=== PATIENT | male | born 1945 | race Caucasian/White ===

== ENCOUNTER 2019-06-15 10:51 | Inpatient (IN) ==
[2019-06-15] MEDS ORDERED: ONDANSETRON 4 MG/2 ML VIAL IV STA (11:28)
[2019-06-15] MEDS ORDERED: HYDROmorphone 2 MG/1 ML VIAL IV STA (11:28)
[2019-06-15] MEDS ORDERED: SODIUM CHLORIDE 0.9% 500 ML IV STA (11:28)
[2019-06-15] MEDS ORDERED: PANTOPRAZOLE 40 MG VIAL IV STA (11:28)
[2019-06-15 13:30] LABS: Basophils % 0.2 % (0.0-0.8); Eosinophils % 0.2 % (0.00-10.9); Hemoglobin 11.7 GM/DL (14.0-18.0); Immature Granulocytes % 1.1 %; Lymphocytes # 0.6 10*3/uL (1.4-4.0); Lymphocytes % 6.8 % (21.2-54.2); Mean Corpuscular HGB Conc 31.6 GM/DL (32-36); Mean Corpuscular Volume 91.8 FL (87-102); Mean Platelet Volume 10.7 FL (9.6-12.0); Monocytes % 2.6 % (1.7-12.7); Neutrophils % 89.1 % (38.7-73.9); Platelet Count 245 T/CUMM (130-400); Red Blood Count 4.03 MC/CUMM (3.8-5.5); Red Cell Distribution Width 14.5 % (9.3-17.3)
[2019-06-15 13:35] LABS: Albumin 3.5 G/DL (3.4-5.0); Bilirubin,Total 0.4 MG/DL (0.2-1.0); Calcium 8.2 MG/DL (8.5-10.1); Osmolality,Calculated 300.4 MOS/KG (273-304); Total Protein 6.4 G/DL (6.4-8.3)
[2019-06-15] MEDS ORDERED: methylPREDNISolone SOD SUC 125 MG/2 ML VIAL IV STA (13:57)
[2019-06-15] MEDS ORDERED: SODIUM CHLORIDE 0.9% 1,000 ML IV STA (13:57)
[2019-06-15 13:58] LABS: Band Neutrophils 5 % (0-10); Lymphocytes 9 % (20-55); Platelet Estimate Normal; Segmented Neutrophils 83 % (50-85); Total Cells Counted 100
[2019-06-15] MEDS ORDERED: LACTATED RINGERS 1,000 ML IV SCH (16:00)
[2019-06-15] MEDS ORDERED: ONDANSETRON 4 MG/2 ML VIAL IV PRN (16:00)
[2019-06-15] MEDS ORDERED: ACETAMINOPHEN 325 MG TABLET PO PRN (16:00)
[2019-06-15] MEDS: PANTOPRAZOLE 40 MG TABLET PO SCH (16:42)
[2019-06-15 18:01] LABS: Thyroid Stimulating Hormone 0.665 uIU/ml (0.358-3.74)
[2019-06-15] MEDS ORDERED: INFLUENZA VIRUS VACCINE 0.5 ML SYRINGE IM ONE (18:08)
[2019-06-15] MEDS: DICYCLOMINE 20 MG TABLET PO SCH (20:59)
[2019-06-15] MEDS: DEXTROSE 5% NACL 0.9% 1,000 ML IV SCH (20:59)
[2019-06-15 22:10] LABS: Apearance,Urine Slightly Hazy (Clear); Bilirubin,Urine Negative (Negative); Blood, Urine Negative (Negative); Glucose,Urine (UA) Negative (Negative); Hyaline Casts,Urine 13 /LPF (0-3); Ketones,Urine 5 mg/dL (Negative); Mucus,Urine Occasional /LPF (Occasional); Nitrite,Urine Negative (Negative); Protein,Urine 30 MG/DL; RBC,Urine 2 /HPF (0-4); Squamous Epithelial Cell,Urine Occasional /HPF (0-10); Urine Color Yellow (Yellow); Urine Specific Gravity 1.013 (1.001-1.035); Urine Urobilinogen < 2.0 EU/DL (0.2-1.0); WBC,Urine 1 /HPF (0-6)
[2019-06-16 05:50] LABS: Basophils % 0.1 % (0.0-0.8); Hematocrit 30.9 VOL% (42.0-52.0); Hemoglobin 9.9 GM/DL (14.0-18.0); Immature Granulocytes % 0.9 %; Immature Granulocytes Absolute 0.08 #; Lymphocytes # 0.6 10*3/uL (1.4-4.0); Lymphocytes % 6.5 % (21.2-54.2); Mean Corpuscular Volume 91.2 FL (87-102); Mean Platelet Volume 10.4 FL (9.6-12.0); Monocytes % 3.2 % (1.7-12.7); Neutrophils % 89.3 % (38.7-73.9); Platelet Count 203 T/CUMM (130-400); Red Blood Count 3.39 MC/CUMM (3.8-5.5); Red Cell Distribution Width 14.4 % (9.3-17.3)
[2019-06-16 06:27] LABS: Calcium 8.1 MG/DL (8.5-10.1); Osmolality,Calculated 301.4 MOS/KG (273-304)
[2019-06-16] MEDS: DEXTROSE 5% NACL 0.9% 1,000 ML IV SCH (07:00)
[2019-06-16] MEDS: VANCOMYCIN 50 MG/ML 60 ML/BOTTLE PO SCH ×4 (07:00→19:10)
[2019-06-16] MEDS: PANTOPRAZOLE 40 MG TABLET PO SCH (08:50)
[2019-06-16] MEDS: DICYCLOMINE 20 MG TABLET PO SCH ×2 (08:51→20:51)
[2019-06-16] MEDS: SODIUM BICARB INJ 100 MEQ in DEXTROSE 5% NACL 0.22% 1,000 ML IV SCH ×2 (10:20→20:52)
[2019-06-16] MEDS: LACTOBACILLUS ACIDOPHILUS/BULGARICUS CAPLET PO SCH ×2 (12:53→20:51)
[2019-06-16] MEDS: MULTIVITAMIN (BEROCCA) TABLET PO SCH (12:53)
[2019-06-16] MEDS: CHOLESTYRAMINE 4 GM PACK PO SCH ×2 (12:53→20:52)
[2019-06-16] MEDS: predniSONE 10 MG TABLET PO SCH (12:53)
[2019-06-16] MEDS: CHOLECALCIFEROL 1,000 UNIT TABLET PO SCH (12:53)
[2019-06-16] MEDS ORDERED: ASPIRIN EC 81 MG TABLET PO SCH (21:00)
[2019-06-17] MEDS: VANCOMYCIN 50 MG/ML 60 ML/BOTTLE PO SCH ×3 (01:33→13:55)
[2019-06-17 06:53] LABS: Basophils % 0.2 % (0.0-0.8); Eosinophils % 0.4 % (0.00-10.9); Hemoglobin 9.3 GM/DL (14.0-18.0); Immature Granulocytes % 0.8 %; Immature Granulocytes Absolute 0.08 #; Mean Corpuscular HGB Conc 32.1 GM/DL (32-36); Mean Corpuscular Volume 90.1 FL (87-102); Mean Platelet Volume 10.9 FL (9.6-12.0); Monocytes % 7.2 % (1.7-12.7); Neutrophils % 81.4 % (38.7-73.9); Platelet Count 203 T/CUMM (130-400); Red Blood Count 3.22 MC/CUMM (3.8-5.5); Red Cell Distribution Width 14.4 % (9.3-17.3); White Blood Count 9.7 T/CUMM (4-12)
[2019-06-17 07:23] LABS: Parathyroid Hormone Intact 105.8 PG/ML (18.4-80.1)
[2019-06-17 07:26] LABS: Calcium 8.6 MG/DL (8.5-10.1); Osmolality,Calculated 311.3 MOS/KG (273-304)
[2019-06-17 07:31] LABS: % Iron Saturation 24.3 % (18-50); Ferritin 204.6 ng/ml (26-388)
[2019-06-17 07:37] LABS: Folate 13.6 NG/ML (5.4-24.0); Vitamin B12 1452 PG/ML (211-911)
[2019-06-17 07:50] VITALS: BP 137/68
[2019-06-17 07:58] LABS: Sedimentation Rate-Westergren 28 MM/HR (0-20)
[2019-06-17] MEDS: predniSONE 10 MG TABLET PO SCH (08:08)
[2019-06-17] MEDS: CHOLECALCIFEROL 1,000 UNIT TABLET PO SCH (08:08)
[2019-06-17] MEDS: SODIUM BICARB INJ 100 MEQ in DEXTROSE 5% NACL 0.22% 1,000 ML IV SCH (08:08)
[2019-06-17] MEDS: DICYCLOMINE 20 MG TABLET PO SCH (08:08)
[2019-06-17] MEDS: MULTIVITAMIN (BEROCCA) TABLET PO SCH (08:08)
[2019-06-17] MEDS: PANTOPRAZOLE 40 MG TABLET PO SCH (08:08)
[2019-06-17] MEDS: LACTOBACILLUS ACIDOPHILUS/BULGARICUS CAPLET PO SCH (08:08)
[2019-06-17] MEDS ORDERED: METOPROLOL SUCCINATE XL 25 MG TABLET PO SCH (09:00)
[2019-06-17 09:51] LABS: Hemoglobin A1 (Alkaline) 97.7 % (96.5-98.5); Hemoglobin A2 (Alkaline) 2.3 % (1.5-3.5)
[2019-06-17] MEDS ORDERED: DEXTROSE 5% NACL 0.45% 1,000 ML IV SCH (13:00)
== END 2019-06-17 14:37 | disposition home or self-care (01) | DRG 372 ==
LOC: EDBD → EDUNIT# → N.ED 10:51 → N.EDINP 16:00 → N.5E 17:36
PROVIDERS: ADMIT Hospitalist; ATTEND Hospitalist

== ENCOUNTER 2019-11-12 09:49 | Inpatient (IN) ==
[2019-11-12] MEDS ORDERED: FUROSEMIDE 40 MG/4 ML VIAL IV STA (10:24)
[2019-11-12 10:33] LABS: Basophils # 0.1 10*3/uL (0.0-0.2); Basophils % 0.3 % (0.0-0.8); Eosinophils # 0.1 10*3/uL (0.0-0.87); Eosinophils % 0.8 % (0.00-10.9); Hematocrit 20.1 VOL% (42.0-52.0); Immature Granulocytes % 5.9 %; Immature Granulocytes Absolute 0.89 #; Lymphocytes # 0.8 10*3/uL (1.4-4.0); Mean Corpuscular HGB Conc 31.3 GM/DL (32-36); Mean Corpuscular Volume 96.2 FL (87-102); Mean Platelet Volume 10.1 FL (9.6-12.0); Monocytes % 4.4 % (1.7-12.7); NRBC # 0.05 10*3/uL; Neutrophils % 83.6 % (38.7-73.9); Platelet Count 269 T/CUMM (130-400); Red Blood Count 2.09 MC/CUMM (3.8-5.5); Red Cell Distribution Width 15.7 % (9.3-17.3); White Blood Count 15.1 T/CUMM (4-12)
[2019-11-12 10:37] LABS: Hemoglobin 6.3 GM/DL (14.0-18.0)
[2019-11-12 10:47] LABS: INR 0.9; PT Patient Result 10.1 SECS (9.6-12.2); Partial Thromboplastin Time 21.4 SECS (20.8-36.0)
[2019-11-12] MEDS ORDERED: SODIUM CHLORIDE 0.9% 1,000 ML IV PRN ×2 (10:53→12:12)
[2019-11-12 10:59] LABS: Alanine Aminotransferase 28 U/L (16-61); Alkaline Phosphatase 82 U/L (45-117); Aspartate Amino Transferase 13 U/L (0-37); Bilirubin,Total < 0.39 MG/DL (0.2-1.0); Blood Urea Nitrogen 58 MG/DL (7-18); Calcium 8.4 MG/DL (8.5-10.1); Estimated Glom Filtration Rate 33 ML/MIN; Glucose 116 MG/DL (74-106); Osmolality,Calculated 299.1 MOS/KG (273-304); Total Protein 5.6 G/DL (6.4-8.3)
[2019-11-12 11:03] LABS: Band Neutrophils 4 % (0-10); Eosinophils 1 % (0-10); Lymphocytes 3 % (20-55); Metamyelocytes 1 %; Myelocytes 1 %; Segmented Neutrophils 89 % (50-85); Total Cells Counted 100
[2019-11-12 11:04] LABS: Anisocytosis 2+; Macrocytosis 1+; Microcytosis 1+; Platelet Estimate Normal; Polychromasia Few; Spherocytes Few
[2019-11-12] MEDS ORDERED: SODIUM CHLORIDE 0.9% 500 ML IV STA (12:02)
[2019-11-12] MEDS ORDERED: ACETAMINOPHEN 325 MG TABLET PO PRN (12:08)
[2019-11-12] MEDS ORDERED: ALBUTEROL 2.5 MG/3 ML NEB RESP TX PRN (12:08)
[2019-11-12] MEDS ORDERED: ONDANSETRON 4 MG/2 ML VIAL IV PRN (12:08)
[2019-11-12 12:11] LABS: Apearance,Urine CLEAR (Clear); Bacteria,Urine Occasional /HPF (Few); Bilirubin,Urine Negative (Negative); Blood, Urine Negative (Negative); Glucose,Urine (UA) Negative (Negative); Hyaline Casts,Urine 6 /LPF (0-3); Ketones,Urine Negative (Negative); Nitrite,Urine Negative (Negative); Protein,Urine Negative; RBC,Urine 3 /HPF (0-4); Urine Color Yellow (Yellow); Urine Specific Gravity 1.014 (1.001-1.035); Urine Urobilinogen < 2.0 EU/DL (0.2-1.0); WBC,Urine 2 /HPF (0-6)
[2019-11-12] MEDS ORDERED: ACETAMINOPHEN INJ 1,000 MG in PREMIX 1 EACH IV ONE (12:18)
[2019-11-12 12:46] LABS: % Iron Saturation 36.6 % (18-50); Uric Acid 12.6 MG/DL (3.5-7.2)
[2019-11-12 12:52] LABS: Risk Ratio 4.47; Thyroid Stimulating Hormone 0.879 uIU/ml (0.358-3.74); VLDL CHOLESTEROL 30.8 MG/DL
[2019-11-12 13:56] LABS: Basophils % 0.2 % (0.0-0.8); Eosinophils % 0.2 % (0.00-10.9); Hematocrit 20.9 VOL% (42.0-52.0); Immature Granulocytes % 7.2 %; Immature Granulocytes Absolute 1.08 #; Lymphocytes # 0.6 10*3/uL (1.4-4.0); Lymphocytes % 3.9 % (21.2-54.2); Mean Corpuscular HGB Conc 29.7 GM/DL (32-36); Mean Corpuscular Volume 100.5 FL (87-102); Mean Platelet Volume 9.9 FL (9.6-12.0); Monocytes % 2.5 % (1.7-12.7); NRBC # 0.05 10*3/uL; Platelet Count 256 T/CUMM (130-400); Red Blood Count 2.08 MC/CUMM (3.8-5.5); Red Cell Distribution Width 15.8 % (9.3-17.3)
[2019-11-12 14:01] LABS: Hemoglobin 6.2 GM/DL (14.0-18.0)
[2019-11-12 14:16] LABS: Folate 19.6 NG/ML (5.4-24.0); Vitamin B12 803 PG/ML (211-911)
[2019-11-12 14:49] LABS: Eosinophils 1 % (0-10); Hypochromasia 1+; Lymphocytes 3 % (20-55); Macrocytosis 1+; Segmented Neutrophils 95 % (50-85); Total Cells Counted 100
[2019-11-12 14:50] LABS: Giant Platelets Few; Platelet Estimate Adequate
[2019-11-12 14:51] LABS: Polychromasia Slight
[2019-11-12 15:22] LABS: Sedimentation Rate-Westergren 48 MM/HR (0-20)
[2019-11-12] MEDS: SODIUM CHLORIDE 0.9% 1,000 ML IV SCH (15:35)
[2019-11-12] MEDS: allopurinoL 100 MG TABLET PO SCH (17:51)
[2019-11-12] MEDS: COLCHICINE 0.6 MG CAPSULE PO SCH (20:43)
[2019-11-13 01:12] LABS: Hematocrit 23.4 VOL% (42.0-52.0); Hemoglobin 7.2 GM/DL (14.0-18.0)
[2019-11-13 01:22] LABS: Osmolality,Calculated 298.8 MOS/KG (273-304)
[2019-11-13 05:36] LABS: Basophils # 0.1 10*3/uL (0.0-0.2); Basophils % 0.4 % (0.0-0.8); Eosinophils # 0.1 10*3/uL (0.0-0.87); Eosinophils % 1.1 % (0.00-10.9); Hematocrit 22.9 VOL% (42.0-52.0); Hemoglobin 7.2 GM/DL (14.0-18.0); Immature Granulocytes % 7.2 %; Immature Granulocytes Absolute 0.82 #; Lymphocytes # 1.4 10*3/uL (1.4-4.0); Lymphocytes % 11.9 % (21.2-54.2); Mean Corpuscular HGB Conc 31.4 GM/DL (32-36); Mean Corpuscular Volume 96.2 FL (87-102); Mean Platelet Volume 10.1 FL (9.6-12.0); Monocytes % 6.8 % (1.7-12.7); NRBC # 0.06 10*3/uL; Neutrophils % 72.6 % (38.7-73.9); Platelet Count 212 T/CUMM (130-400); Red Blood Count 2.38 MC/CUMM (3.8-5.5); Red Cell Distribution Width 16.7 % (9.3-17.3); White Blood Count 11.4 T/CUMM (4-12)
[2019-11-13] MEDS ORDERED: SODIUM CHLORIDE 0.9% 1,000 ML IV PRN (06:47)
[2019-11-13 06:55] LABS: Band Neutrophils 5 % (0-10); Eosinophils 2 % (0-10); Lymphocytes 15 % (20-55); Metamyelocytes 1 %; Myelocytes 3 %; Segmented Neutrophils 67 % (50-85); Total Cells Counted 100
[2019-11-13 06:56] LABS: Anisocytosis 1+; Microcytosis 1+; Platelet Estimate Normal
[2019-11-13] MEDS ORDERED: predniSONE 20 MG TABLET PO SCH (09:00)
[2019-11-13] MEDS ORDERED: FUROSEMIDE 40 MG TABLET PO SCH (09:00)
[2019-11-13] MEDS: PANTOPRAZOLE 40 MG TABLET PO SCH (09:14)
[2019-11-13] MEDS: allopurinoL 100 MG TABLET PO SCH (09:14)
[2019-11-13] MEDS: FENOFIBRATE 145 MG TABLET PO SCH (09:14)
[2019-11-13] MEDS: COLCHICINE 0.6 MG CAPSULE PO SCH ×2 (09:14→20:52)
[2019-11-13] MEDS: MULTIVITAMIN (CENTRUM) TABLET PO SCH (09:14)
[2019-11-13] MEDS: OLMESARTAN 20 MG TABLET PO SCH (09:14)
[2019-11-13] MEDS: SODIUM CHLORIDE 0.9% 1,000 ML IV SCH ×2 (09:15→18:24)
[2019-11-13] MEDS: cefTRIAXone 1,000 MG in SYRINGE 1 EACH IV SCH (13:38)
[2019-11-13 17:48] LABS: Hematocrit 29.2 VOL% (42.0-52.0)
[2019-11-13 17:50] LABS: Hemoglobin 9.1 GM/DL (14.0-18.0)
[2019-11-13 23:26] LABS: Hematocrit 26.5 VOL% (42.0-52.0); Hemoglobin 8.3 GM/DL (14.0-18.0)
[2019-11-14] MEDS: SODIUM CHLORIDE 0.9% 1,000 ML IV SCH ×2 (03:51→16:51)
[2019-11-14 06:44] LABS: Basophils # 0.1 10*3/uL (0.0-0.2); Basophils % 0.6 % (0.0-0.8); Eosinophils # 0.2 10*3/uL (0.0-0.87); Eosinophils % 1.8 % (0.00-10.9); Hematocrit 26.6 VOL% (42.0-52.0); Hemoglobin 8.6 GM/DL (14.0-18.0); Immature Granulocytes % 6.7 %; Immature Granulocytes Absolute 0.58 #; Lymphocytes # 1.1 10*3/uL (1.4-4.0); Lymphocytes % 12.1 % (21.2-54.2); Mean Corpuscular HGB Conc 32.3 GM/DL (32-36); Mean Corpuscular Volume 93.7 FL (87-102); Mean Platelet Volume 10.2 FL (9.6-12.0); Monocytes % 7.3 % (1.7-12.7); NRBC # 0.04 10*3/uL; Neutrophils % 71.5 % (38.7-73.9); Platelet Count 180 T/CUMM (130-400); Red Blood Count 2.84 MC/CUMM (3.8-5.5); Red Cell Distribution Width 15.8 % (9.3-17.3); White Blood Count 8.7 T/CUMM (4-12)
[2019-11-14 07:10] LABS: Eosinophils 3 % (0-10); Hypochromasia 1+; Lymphocytes 8 % (20-55); Microcytosis 1+; Platelet Estimate Adequate; Segmented Neutrophils 81 % (50-85); Total Cells Counted 100
[2019-11-14 07:15] LABS: Calcium 8.2 MG/DL (8.5-10.1); Osmolality,Calculated 293.7 MOS/KG (273-304)
[2019-11-14] MEDS ORDERED: LIDOCAINE 2% 5 ML VIAL ONE (09:00)
[2019-11-14] MEDS ORDERED: propofoL 200 MG/20 ML VIAL IV ONE (09:00)
[2019-11-14] MEDS ORDERED: CYANOCOBALAMIN 1000 MCG/1 ML VIAL IM SCH (09:00)
[2019-11-14 09:20] LABS: Hemoglobin A1 (Alkaline) 97.8 % (96.5-98.5); Hemoglobin A2 (Alkaline) 2.2 % (1.5-3.5)
[2019-11-14] MEDS: cefTRIAXone 1,000 MG in SYRINGE 1 EACH IV SCH (13:13)
[2019-11-14] MEDS: OLMESARTAN 20 MG TABLET PO SCH (14:40)
[2019-11-14] MEDS: COLCHICINE 0.6 MG CAPSULE PO SCH ×2 (14:41→20:38)
[2019-11-14] MEDS: MULTIVITAMIN (CENTRUM) TABLET PO SCH (14:41)
[2019-11-14] MEDS: allopurinoL 100 MG TABLET PO SCH (14:41)
[2019-11-14] MEDS: FENOFIBRATE 145 MG TABLET PO SCH (14:41)
[2019-11-14] MEDS: PANTOPRAZOLE 40 MG TABLET PO SCH (14:41)
[2019-11-15 04:46] LABS: Basophils % 0.5 % (0.0-0.8); Eosinophils # 0.2 10*3/uL (0.0-0.87); Eosinophils % 2.4 % (0.00-10.9); Hematocrit 27.4 VOL% (42.0-52.0); Hemoglobin 8.4 GM/DL (14.0-18.0); Immature Granulocytes % 5.6 %; Immature Granulocytes Absolute 0.35 #; Lymphocytes # 0.8 10*3/uL (1.4-4.0); Lymphocytes % 12.9 % (21.2-54.2); Mean Corpuscular HGB Conc 30.7 GM/DL (32-36); Mean Corpuscular Volume 96.8 FL (87-102); Mean Platelet Volume 9.9 FL (9.6-12.0); Monocytes % 8.1 % (1.7-12.7); Neutrophils % 70.5 % (38.7-73.9); Platelet Count 176 T/CUMM (130-400); Red Blood Count 2.83 MC/CUMM (3.8-5.5); Red Cell Distribution Width 16.1 % (9.3-17.3); White Blood Count 6.2 T/CUMM (4-12)
[2019-11-15 05:09] LABS: Band Neutrophils 1 % (0-10); Eosinophils 4 % (0-10); Hypochromasia 1+; Lymphocytes 17 % (20-55); Microcytosis 1+; Platelet Estimate Adequate; Segmented Neutrophils 75 % (50-85); Total Cells Counted 100
[2019-11-15 05:23] LABS: Calcium 8.3 MG/DL (8.5-10.1); Osmolality,Calculated 292.6 MOS/KG (273-304)
[2019-11-15] MEDS: COLCHICINE 0.6 MG CAPSULE PO SCH ×2 (08:41→20:13)
[2019-11-15] MEDS: PANTOPRAZOLE 40 MG TABLET PO SCH (08:41)
[2019-11-15] MEDS: MULTIVITAMIN (CENTRUM) TABLET PO SCH (08:41)
[2019-11-15] MEDS: FENOFIBRATE 145 MG TABLET PO SCH (08:41)
[2019-11-15] MEDS: OLMESARTAN 20 MG TABLET PO SCH (08:41)
[2019-11-15] MEDS: SODIUM CHLORIDE 0.9% 1,000 ML IV SCH ×2 (08:41→20:13)
[2019-11-15] MEDS: allopurinoL 100 MG TABLET PO SCH (08:42)
[2019-11-15] MEDS: cefTRIAXone 1,000 MG in SYRINGE 1 EACH IV SCH (14:45)
[2019-11-16 06:19] LABS: Basophils % 0.7 % (0.0-0.8); Eosinophils # 0.2 10*3/uL (0.0-0.87); Eosinophils % 3.5 % (0.00-10.9); Hematocrit 27.3 VOL% (42.0-52.0); Hemoglobin 8.8 GM/DL (14.0-18.0); Immature Granulocytes % 3.3 %; Immature Granulocytes Absolute 0.19 #; Lymphocytes # 0.8 10*3/uL (1.4-4.0); Lymphocytes % 14.8 % (21.2-54.2); Mean Corpuscular HGB Conc 32.2 GM/DL (32-36); Mean Corpuscular Volume 94.1 FL (87-102); Mean Platelet Volume 9.8 FL (9.6-12.0); Monocytes % 8.1 % (1.7-12.7); Neutrophils % 69.6 % (38.7-73.9); Platelet Count 166 T/CUMM (130-400); Red Cell Distribution Width 16.2 % (9.3-17.3); White Blood Count 5.7 T/CUMM (4-12)
[2019-11-16 06:34] LABS: Alanine Aminotransferase 29 U/L (16-61); Albumin 2.8 G/DL (3.4-5.0); Alkaline Phosphatase 64 U/L (45-117); Aspartate Amino Transferase 21 U/L (0-37); Bilirubin,Total < 0.39 MG/DL (0.2-1.0); Blood Urea Nitrogen 16 MG/DL (7-18); Calcium 8.1 MG/DL (8.5-10.1); Estimated Glom Filtration Rate 74 ML/MIN; Glucose 84 MG/DL (74-106); Osmolality,Calculated 287.7 MOS/KG (273-304); Total Protein 5.5 G/DL (6.4-8.3)
[2019-11-16 06:35] LABS: % Iron Saturation 14.1 % (18-50); Ferritin 356.2 ng/ml (26-388)
[2019-11-16 06:52] LABS: Folate 17.5 NG/ML (5.4-24.0); Vitamin B12 > 2000 PG/ML (211-911)
[2019-11-16] MEDS: OLMESARTAN 20 MG TABLET PO SCH (09:03)
[2019-11-16] MEDS: allopurinoL 100 MG TABLET PO SCH (09:03)
[2019-11-16] MEDS: COLCHICINE 0.6 MG CAPSULE PO SCH (09:03)
[2019-11-16] MEDS: PANTOPRAZOLE 40 MG TABLET PO SCH (09:03)
[2019-11-16] MEDS: FENOFIBRATE 145 MG TABLET PO SCH (09:03)
[2019-11-16] MEDS: MULTIVITAMIN (CENTRUM) TABLET PO SCH (09:03)
[2019-11-16 11:03] VITALS: BP 132/86
== END 2019-11-16 15:30 | disposition home or self-care (01) | DRG 378 ==
LOC: N.ED 09:49 → N.EDINP 12:08 → SUATTDRO 12:08 → N.3E 13:03
PROVIDERS: ADMIT Internal Medicine; ATTEND Internal Medicine

== ENCOUNTER 2020-01-21 13:10 | Inpatient (IN) ==
[~2020-01-21 13:10] MED LIST: LIDOCAINE 2% 5 ML VIAL ONE; propofoL 200 MG/20 ML VIAL IV ONE
[2020-01-21 13:40] LABS: Basophils # 0.1 10*3/uL (0.0-0.2); Basophils % 0.5 % (0.0-0.8); Eosinophils # 0.1 10*3/uL (0.0-0.87); Eosinophils % 0.3 % (0.00-10.9); Hematocrit 30.5 VOL% (42.0-52.0); Hemoglobin 9.4 GM/DL (14.0-18.0); Immature Granulocytes % 9.9 %; Immature Granulocytes Absolute 1.51 #; Lymphocytes # 0.4 10*3/uL (1.4-4.0); Lymphocytes % 2.9 % (21.2-54.2); Mean Corpuscular HGB Conc 30.8 GM/DL (32-36); Mean Corpuscular Volume 98.4 FL (87-102); Mean Platelet Volume 9.9 FL (9.6-12.0); Monocytes % 4.6 % (1.7-12.7); NRBC # 0.13 10*3/uL; Neutrophils % 81.8 % (38.7-73.9); Platelet Count 223 T/CUMM (130-400); Red Cell Distribution Width 17.6 % (9.3-17.3); White Blood Count 15.3 T/CUMM (4-12)
[2020-01-21 14:01] LABS: Alanine Aminotransferase 26 U/L (16-61); Alkaline Phosphatase 63 U/L (45-117); Aspartate Amino Transferase 24 U/L (0-37); Bilirubin,Total < 0.39 MG/DL (0.2-1.0); Blood Urea Nitrogen 33 MG/DL (7-18); Calcium 8.5 MG/DL (8.5-10.1); Estimated Glom Filtration Rate 41 ML/MIN; Glucose 101 MG/DL (74-106); Osmolality,Calculated 285.4 MOS/KG (273-304); Total Protein 6.2 G/DL (6.4-8.3)
[2020-01-21] MEDS ORDERED: SODIUM CHLORIDE 0.9% 1,000 ML IV STA (14:49)
[2020-01-21] MEDS ORDERED: PANTOPRAZOLE 40 MG VIAL IV STA (14:49)
[2020-01-21 15:29] LABS: Band Neutrophils 2 % (0-10); Lymphocytes 4 % (20-55); Macrocytosis Slight; Nucleated Red Blood Cells 3 (0-5); Platelet Estimate Normal; Segmented Neutrophils 89 % (50-85); Total Cells Counted 100
[2020-01-21 15:33] LABS: PT Patient Result 10.3 SECS (9.8-11.9); Partial Thromboplastin Time 25.9 SECS (23.9-33.8)
[2020-01-21] MEDS ORDERED: GLUCAGON 1 MG VIAL IM PRN (16:32)
[2020-01-21] MEDS ORDERED: ONDANSETRON 4 MG/2 ML VIAL IV PRN (16:32)
[2020-01-21] MEDS ORDERED: DEXTROSE 10% 250 ML BAG IV PRN (16:32)
[2020-01-21] MEDS ORDERED: ACETAMINOPHEN 325 MG TABLET PO PRN (16:32)
[2020-01-21] MEDS ORDERED: SODIUM CHLORIDE 0.9% 1,000 ML IV PRN (16:35)
[2020-01-21 17:48] LABS: Ferritin 1481.3 ng/ml (26-388)
[2020-01-21 17:56] LABS: Troponin I < 0.015 NG/ML (0.00-0.045)
[2020-01-21] MEDS ORDERED: SODIUM CHLORIDE 0.9% 1,000 ML IV SCH (18:42)
[2020-01-21 19:10] LABS: Hematocrit 32.5 VOL% (42.0-52.0); Hemoglobin 9.8 GM/DL (14.0-18.0)
[2020-01-21] MEDS: PANTOPRAZOLE 40 MG VIAL IV SCH (21:58)
[2020-01-21] MEDS ORDERED: NON-FORMULARY MEDICATION (Omeprazole 40 MG) PO PRN (22:46)
[2020-01-21] MEDS ORDERED: FUROSEMIDE 40 MG TABLET PO PRN (22:46)
[2020-01-21] MEDS ORDERED: ALBUTEROL 2.5 MG/3 ML NEB RESP TX PRN (22:46)
[2020-01-21] MEDS: traMADol 50 MG TABLET PO SCH (23:21)
[2020-01-22 01:07] LABS: Hematocrit 26.6 VOL% (42.0-52.0); Hemoglobin 8.1 GM/DL (14.0-18.0)
[2020-01-22] MEDS: PANTOPRAZOLE 40 MG VIAL IV SCH ×2 (08:40→22:27)
[2020-01-22] MEDS: FENOFIBRATE 145 MG TABLET PO SCH (08:41)
[2020-01-22] MEDS: allopurinoL 100 MG TABLET PO SCH (08:41)
[2020-01-22] MEDS: COLCHICINE 0.6 MG CAPSULE PO SCH (08:41)
[2020-01-22] MEDS: predniSONE 20 MG TABLET PO SCH (08:41)
[2020-01-22] MEDS: OLMESARTAN 20 MG TABLET PO SCH (08:41)
[2020-01-22 08:42] LABS: Hematocrit 27.5 VOL% (42.0-52.0); Hemoglobin 8.5 GM/DL (14.0-18.0)
[2020-01-22 08:55] LABS: Albumin 2.8 G/DL (3.4-5.0); Bilirubin,Total 0.7 MG/DL (0.2-1.0); Calcium 8.2 MG/DL (8.5-10.1); Total Protein 5.6 G/DL (6.4-8.3)
[2020-01-22] MEDS ORDERED: MULTIVITAMIN (CENTRUM) TABLET PO SCH (09:00)
[2020-01-22 10:29] LABS: % Iron Saturation 32.9 % (18-50)
[2020-01-22] MEDS: SODIUM CHLORIDE 0.9% 1,000 ML IV SCH (15:55)
[2020-01-22 18:26] LABS: Hematocrit 27.2 VOL% (42.0-52.0); Hemoglobin 8.3 GM/DL (14.0-18.0)
[2020-01-22] MEDS: traMADol 50 MG TABLET PO SCH (20:40)
[2020-01-23 06:27] LABS: Basophils % 0.4 % (0.0-0.8); Eosinophils # 0.1 10*3/uL (0.0-0.87); Eosinophils % 1.1 % (0.00-10.9); Hematocrit 25.7 VOL% (42.0-52.0); Immature Granulocytes % 6.9 %; Immature Granulocytes Absolute 0.54 #; Lymphocytes # 0.8 10*3/uL (1.4-4.0); Lymphocytes % 9.9 % (21.2-54.2); Mean Corpuscular HGB Conc 31.1 GM/DL (32-36); Mean Corpuscular Volume 97.3 FL (87-102); Mean Platelet Volume 9.9 FL (9.6-12.0); Monocytes % 7.2 % (1.7-12.7); Neutrophils % 74.5 % (38.7-73.9); Platelet Count 183 T/CUMM (130-400); Red Blood Count 2.64 MC/CUMM (3.8-5.5); Red Cell Distribution Width 17.8 % (9.3-17.3); White Blood Count 7.9 T/CUMM (4-12)
[2020-01-23] MEDS: SODIUM CHLORIDE 0.9% 1,000 ML IV SCH (06:47)
[2020-01-23 06:52] LABS: Calcium 8.2 MG/DL (8.5-10.1); Osmolality,Calculated 279.4 MOS/KG (273-304)
[2020-01-23 07:13] LABS: Anisocytosis 2+; Band Neutrophils 7 % (0-10); Eosinophils 1 % (0-10); Lymphocytes 12 % (20-55); Metamyelocytes 2 %; Myelocytes 3 %; Platelet Estimate Normal; Segmented Neutrophils 70 % (50-85); Total Cells Counted 100
[2020-01-23 07:14] LABS: Basophilic Stippling Slight; Macrocytosis Slight; Polychromasia Slight
[2020-01-23] MEDS: predniSONE 20 MG TABLET PO SCH ×2 (08:00→15:05)
[2020-01-23] MEDS ORDERED: CYANOCOBALAMIN 1000 MCG/1 ML VIAL IM SCH (09:00)
[2020-01-23] MEDS: PANTOPRAZOLE 40 MG VIAL IV SCH ×2 (09:15→21:14)
[2020-01-23] MEDS: OLMESARTAN 20 MG TABLET PO SCH (14:41)
[2020-01-23] MEDS: allopurinoL 100 MG TABLET PO SCH (14:41)
[2020-01-23] MEDS: COLCHICINE 0.6 MG CAPSULE PO SCH (14:41)
[2020-01-23] MEDS: FENOFIBRATE 145 MG TABLET PO SCH (14:41)
[2020-01-23] MEDS: traMADol 50 MG TABLET PO SCH (21:14)
[2020-01-24 06:08] LABS: Basophils % 0.1 % (0.0-0.8); Hematocrit 27.3 VOL% (42.0-52.0); Hemoglobin 8.4 GM/DL (14.0-18.0); Immature Granulocytes % 3.8 %; Immature Granulocytes Absolute 0.29 #; Lymphocytes # 0.6 10*3/uL (1.4-4.0); Lymphocytes % 8.1 % (21.2-54.2); Mean Corpuscular HGB Conc 30.8 GM/DL (32-36); Mean Corpuscular Volume 98.2 FL (87-102); Mean Platelet Volume 9.9 FL (9.6-12.0); Monocytes % 5.4 % (1.7-12.7); Neutrophils % 82.6 % (38.7-73.9); Platelet Count 171 T/CUMM (130-400); Red Blood Count 2.78 MC/CUMM (3.8-5.5); Red Cell Distribution Width 17.2 % (9.3-17.3); White Blood Count 7.6 T/CUMM (4-12)
[2020-01-24] MEDS: OLMESARTAN 20 MG TABLET PO SCH (09:10)
[2020-01-24] MEDS: allopurinoL 100 MG TABLET PO SCH (09:10)
[2020-01-24] MEDS: COLCHICINE 0.6 MG CAPSULE PO SCH (09:10)
[2020-01-24] MEDS: predniSONE 20 MG TABLET PO SCH (09:10)
[2020-01-24] MEDS: PANTOPRAZOLE 40 MG VIAL IV SCH ×2 (09:11→23:02)
[2020-01-24] MEDS: FENOFIBRATE 145 MG TABLET PO SCH (09:11)
[2020-01-24] MEDS ORDERED: SODIUM CHLORIDE 0.9% 1,000 ML IV PRN (12:19)
[2020-01-24] MEDS ORDERED: MAGNESIUM CITRATE 300 ML BOTTLE PO ONE (18:00)
[2020-01-24] MEDS: traMADol 50 MG TABLET PO SCH (22:57)
[2020-01-24] MEDS: cefTRIAXone 1,000 MG in SYRINGE 1 EACH IV SCH (22:58)
[2020-01-24 23:00] LABS: Hematocrit 35.9 VOL% (42.0-52.0); Hemoglobin 11.5 GM/DL (14.0-18.0)
[2020-01-25] MEDS: allopurinoL 100 MG TABLET PO SCH (09:24)
[2020-01-25] MEDS: predniSONE 20 MG TABLET PO SCH (09:24)
[2020-01-25] MEDS: COLCHICINE 0.6 MG CAPSULE PO SCH (09:24)
[2020-01-25] MEDS: OLMESARTAN 20 MG TABLET PO SCH (09:24)
[2020-01-25] MEDS: FENOFIBRATE 145 MG TABLET PO SCH (09:24)
[2020-01-25] MEDS: PANTOPRAZOLE 40 MG VIAL IV SCH (09:25)
[2020-01-25] MEDS: cefTRIAXone 1,000 MG in SYRINGE 1 EACH IV SCH (09:26)
[2020-01-25 16:08] VITALS: BP 117/77
== END 2020-01-25 17:24 | disposition home or self-care (01) | DRG 378 ==
LOC: N.ED 13:10 → N.EDINP 16:32 → N.3E 18:34
PROVIDERS: ADMIT Internal Medicine; ATTEND Internal Medicine

== ENCOUNTER 2020-02-13 15:34 | Inpatient (IN) ==
[2020-02-13 17:26] LABS: Basophils # 0.1 10*3/uL (0.0-0.2); Eosinophils # 0.2 10*3/uL (0.0-0.87); Eosinophils % 1.6 % (0.00-10.9); Hematocrit 38.4 VOL% (42.0-52.0); Hemoglobin 11.8 GM/DL (14.0-18.0); Immature Granulocytes % 7.5 %; Immature Granulocytes Absolute 0.71 #; Lymphocytes # 0.8 10*3/uL (1.4-4.0); Lymphocytes % 8.7 % (21.2-54.2); Mean Corpuscular HGB Conc 30.7 GM/DL (32-36); Mean Corpuscular Volume 98.2 FL (87-102); Mean Platelet Volume 9.5 FL (9.6-12.0); Monocytes % 7.6 % (1.7-12.7); Neutrophils % 73.6 % (38.7-73.9); Platelet Count 182 T/CUMM (130-400); Red Blood Count 3.91 MC/CUMM (3.8-5.5); Red Cell Distribution Width 16.2 % (9.3-17.3); White Blood Count 9.5 T/CUMM (4-12)
[2020-02-13 17:40] LABS: Calcium 8.7 MG/DL (8.5-10.1)
[2020-02-13 17:53] LABS: PT Patient Result 10.3 SECS (9.8-11.9); Partial Thromboplastin Time 24.1 SECS (23.9-33.8)
[2020-02-13 18:29] LABS: Eosinophils 2 % (0-10); Lymphocytes 12 % (20-55); Metamyelocytes 2 %; Segmented Neutrophils 82 % (50-85); Total Cells Counted 100
[2020-02-13 18:30] LABS: Hypochromasia Slight; Microcytosis Slight
[2020-02-13] MEDS ORDERED: DEXTROSE 10% 250 ML BAG IV PRN (19:22)
[2020-02-13] MEDS ORDERED: ONDANSETRON 4 MG/2 ML VIAL IV PRN (19:22)
[2020-02-13] MEDS ORDERED: GLUCAGON 1 MG VIAL IM PRN (19:22)
[2020-02-13] MEDS ORDERED: HEPARIN DRIP 25,000 UNITS/500 ML PREMIX IV SCH (19:30)
[2020-02-13] MEDS ORDERED: ALBUTEROL 2.5 MG/3 ML NEB RESP TX PRN (19:31)
[2020-02-13] MEDS ORDERED: metOLazone 5 MG TABLET PO PRN (19:31)
[2020-02-13] MEDS ORDERED: FUROSEMIDE 40 MG TABLET PO PRN (19:31)
[2020-02-13] MEDS ORDERED: methylPREDNISolone SOD SUC 40 MG/1 ML VIAL IV ONE (19:33)
[2020-02-13] MEDS: SODIUM CHLORIDE 0.45% 1,000 ML IV SCH (21:22)
[2020-02-13 21:49] LABS: PT Patient Result 10.4 SECS (9.8-11.9); Partial Thromboplastin Time 22.8 SECS (23.9-33.8)
[2020-02-13] MEDS: METHOCARBAMOL 500 MG TABLET PO SCH (22:12)
[2020-02-14 04:15] LABS: Basophils # 0.1 10*3/uL (0.0-0.2); Basophils % 0.7 % (0.0-0.8); Eosinophils % 0.1 % (0.00-10.9); Hematocrit 35.8 VOL% (42.0-52.0); Immature Granulocytes % 7.3 %; Immature Granulocytes Absolute 0.63 #; Lymphocytes # 0.5 10*3/uL (1.4-4.0); Lymphocytes % 5.7 % (21.2-54.2); Mean Corpuscular HGB Conc 30.7 GM/DL (32-36); Mean Corpuscular Volume 98.6 FL (87-102); Mean Platelet Volume 9.9 FL (9.6-12.0); Monocytes % 2.1 % (1.7-12.7); Neutrophils % 84.1 % (38.7-73.9); Platelet Count 171 T/CUMM (130-400); Red Blood Count 3.63 MC/CUMM (3.8-5.5); Red Cell Distribution Width 15.9 % (9.3-17.3); White Blood Count 8.6 T/CUMM (4-12)
[2020-02-14 04:39] LABS: Band Neutrophils 3 % (0-10); Eosinophils 1 % (0-10); Hypochromasia 1+; Lymphocytes 2 % (20-55); Microcytosis Slight; Myelocytes 2 %; Platelet Estimate Adequate; Segmented Neutrophils 89 % (50-85); Total Cells Counted 100
[2020-02-14 05:06] LABS: PT Patient Result 10.9 SECS (9.8-11.9)
[2020-02-14 06:27] LABS: Calcium 8.5 MG/DL (8.5-10.1); Osmolality,Calculated 287.4 MOS/KG (273-304)
[2020-02-14] MEDS ORDERED: NON-FORMULARY MEDICATION (Omeprazole 40 MG) PO SCH (09:00)
[2020-02-14] MEDS ORDERED: DIAZEPAM 5 MG TABLET PO ONE (10:45)
[2020-02-14] MEDS: SODIUM CHLORIDE 0.45% 1,000 ML IV SCH ×4 (15:54→23:41)
[2020-02-14] MEDS: MULTIVITAMIN (CENTRUM) TABLET PO SCH (15:56)
[2020-02-14] MEDS: predniSONE 10 MG TABLET PO SCH (15:57)
[2020-02-14] MEDS: PANTOPRAZOLE 40 MG TABLET PO SCH (15:57)
[2020-02-14] MEDS: FENOFIBRATE 145 MG TABLET PO SCH (15:57)
[2020-02-14] MEDS: METHOCARBAMOL 500 MG TABLET PO SCH (20:51)
[2020-02-15] MEDS: SODIUM CHLORIDE 0.45% 1,000 ML IV SCH ×2 (03:43→12:07)
[2020-02-15 08:19] VITALS: BP 166/95
[2020-02-15] MEDS: predniSONE 10 MG TABLET PO SCH (09:53)
[2020-02-15] MEDS: PANTOPRAZOLE 40 MG TABLET PO SCH (09:54)
[2020-02-15] MEDS: FENOFIBRATE 145 MG TABLET PO SCH (09:54)
[2020-02-15] MEDS: MULTIVITAMIN (CENTRUM) TABLET PO SCH (09:54)
== END 2020-02-15 12:06 | disposition home or self-care (01) | DRG 253 ==
LOC: N.ED 15:34 → N.EDINP 19:22 → N.3E 02-14 14:21
PROVIDERS: ADMIT Family Medicine; ATTEND Family Medicine

== ENCOUNTER 2021-01-11 10:22 | Inpatient (IN) ==
[2021-01-11] MEDS ORDERED: methylPREDNISolone SOD SUC 125 MG/2 ML VIAL IV STA (11:02)
[2021-01-11] MEDS ORDERED: ALBUTEROL 2.5 MG/3 ML NEB RESP TX STA ×2 (11:03→11:54)
[2021-01-11 11:09] LABS: Basophils # 0.1 10*3/uL (0.0-0.2); Basophils % 0.7 % (0.0-0.8); Eosinophils # 0.3 10*3/uL (0.0-0.87); Eosinophils % 2.3 % (0.00-10.9); Hematocrit 43.8 VOL% (42.0-52.0); Hemoglobin 13.5 GM/DL (14.0-18.0); Immature Granulocytes Absolute 0.48 #; Lymphocytes # 0.5 10*3/uL (1.4-4.0); Lymphocytes % 4.4 % (21.2-54.2); Mean Corpuscular HGB Conc 30.8 GM/DL (32-36); Mean Corpuscular Volume 98.9 FL (87-102); Mean Platelet Volume 9.9 FL (9.6-12.0); Monocytes % 4.8 % (1.7-12.7); Neutrophils % 83.8 % (38.7-73.9); Platelet Count 172 T/CUMM (130-400); Red Blood Count 4.43 MC/CUMM (3.8-5.5); Red Cell Distribution Width 15.9 % (9.3-17.3)
[2021-01-11 11:17] LABS: PT Patient Result 11.4 SECS (9.8-11.9)
[2021-01-11 11:20] LABS: Albumin 3.9 G/DL (3.4-5.0); Bilirubin,Total 0.5 MG/DL (0.2-1.0); Calcium 9.3 MG/DL (8.5-10.1); Osmolality,Calculated 285.4 MOS/KG (273-304); Potassium 3.8 MMOL/L (3.5-5.1); Total Protein 6.7 G/DL (6.4-8.2)
[2021-01-11 11:33] LABS: Anisocytosis 1+; Atypical Lymphocytes Few; Band Neutrophils 3 % (0-10); Eosinophils 2 % (0-10); Lymphocytes 9 % (20-55); Platelet Estimate Normal; Segmented Neutrophils 83 % (50-85); Total Cells Counted 100
[2021-01-11 11:34] LABS: Macrocytosis 1+
[2021-01-11] MEDS ORDERED: GLUCAGON 1 MG VIAL IM PRN (13:01)
[2021-01-11] MEDS ORDERED: DEXTROSE 50% 25 GM/50 ML VIAL IV PRN (13:01)
[2021-01-11] MEDS ORDERED: metOLazone 2.5 MG TABLET PO PRN (13:14)
[2021-01-11 15:07] LABS: Troponin I < 0.015 NG/ML (0.00-0.045)
[2021-01-11] MEDS: DILTIAZEM INJ 100 MG in SODIUM CHLORIDE 0.9% 100 ML IV SCH ×2 (15:32→23:43)
[2021-01-11] MEDS: FUROSEMIDE 40 MG/4 ML VIAL IV SCH (16:20)
[2021-01-11] MEDS: PANTOPRAZOLE 40 MG TABLET PO SCH (16:21)
[2021-01-11] MEDS: methylPREDNISolone SOD SUC 40 MG/1 ML VIAL IV SCH ×2 (16:21→20:36)
[2021-01-11] MEDS ORDERED: PNEUMOCOCCAL VACCINE (13 VALENT) 0.5 ML SYRINGE IM ONE (16:27)
[2021-01-11] MEDS: LEVALBUTEROL 0.31 MG/3 ML NEB RESP TX SCH (20:12)
[2021-01-11] MEDS: SOTALOL 80 MG TABLET PO SCH (20:35)
[2021-01-11] MEDS: METHOCARBAMOL 500 MG TABLET PO SCH (20:36)
[2021-01-11] MEDS: LATANOPROST 0.005% OPH SOLN 2.5 ML BOTTLE BOTH EYES SCH (20:36)
[2021-01-12] MEDS: LEVALBUTEROL 0.31 MG/3 ML NEB RESP TX SCH ×6 (01:26→20:37)
[2021-01-12 05:25] LABS: Basophils % 0.3 % (0.0-0.8); Hematocrit 38.6 VOL% (42.0-52.0); Hemoglobin 12.6 GM/DL (14.0-18.0); Immature Granulocytes Absolute 0.26 #; Lymphocytes # 0.5 10*3/uL (1.4-4.0); Lymphocytes % 3.6 % (21.2-54.2); Mean Corpuscular HGB Conc 32.6 GM/DL (32-36); Mean Corpuscular Volume 95.3 FL (87-102); Mean Platelet Volume 10.3 FL (9.6-12.0); Monocytes % 1.9 % (1.7-12.7); Neutrophils % 92.2 % (38.7-73.9); Platelet Count 167 T/CUMM (130-400); Red Blood Count 4.05 MC/CUMM (3.8-5.5); Red Cell Distribution Width 15.5 % (9.3-17.3)
[2021-01-12] MEDS: methylPREDNISolone SOD SUC 40 MG/1 ML VIAL IV SCH ×3 (05:43→20:33)
[2021-01-12 05:50] LABS: Band Neutrophils 1 % (0-10); Lymphocytes 4 % (20-55); Platelet Estimate Normal; Segmented Neutrophils 94 % (50-85); Total Cells Counted 100
[2021-01-12 05:56] LABS: Osmolality,Calculated 285.7 MOS/KG (273-304); Potassium 3.9 MMOL/L (3.5-5.1); Risk Ratio 3.17; Thyroid Stimulating Hormone 0.261 uIU/ml (0.358-3.74); VLDL CHOLESTEROL 11.8 MG/DL
[2021-01-12] MEDS: DILTIAZEM CD 120 MG CAPSULE PO SCH ×2 (09:20→20:26)
[2021-01-12] MEDS: FUROSEMIDE 40 MG/4 ML VIAL IV SCH (09:20)
[2021-01-12] MEDS: MULTIVITAMIN (CENTRUM) TABLET PO SCH (09:20)
[2021-01-12] MEDS: SOTALOL 80 MG TABLET PO SCH ×2 (09:20→20:26)
[2021-01-12] MEDS: allopurinoL 100 MG TABLET PO SCH ×2 (09:21→20:26)
[2021-01-12] MEDS: PANTOPRAZOLE 40 MG TABLET PO SCH (09:21)
[2021-01-12] MEDS: METHOCARBAMOL 500 MG TABLET PO SCH (20:26)
[2021-01-12] MEDS: LATANOPROST 0.005% OPH SOLN 2.5 ML BOTTLE BOTH EYES SCH (20:27)
[2021-01-12] MEDS: BUDESONIDE 0.5 MG/2 ML NEB RESP TX SCH (20:37)
[2021-01-13] MEDS: ZALEPLON 5 MG CAPSULE PO PRN (00:15)
[2021-01-13] MEDS: LEVALBUTEROL 0.31 MG/3 ML NEB RESP TX SCH ×6 (01:19→20:07)
[2021-01-13] MEDS: methylPREDNISolone SOD SUC 40 MG/1 ML VIAL IV SCH ×3 (05:42→20:37)
[2021-01-13 06:11] LABS: Basophils % 0.1 % (0.0-0.8); Hematocrit 41.6 VOL% (42.0-52.0); Hemoglobin 13.1 GM/DL (14.0-18.0); Immature Granulocytes % 2.2 %; Immature Granulocytes Absolute 0.39 #; Lymphocytes # 0.5 10*3/uL (1.4-4.0); Lymphocytes % 2.9 % (21.2-54.2); Mean Corpuscular HGB Conc 31.5 GM/DL (32-36); Mean Corpuscular Volume 96.7 FL (87-102); Mean Platelet Volume 10.3 FL (9.6-12.0); Monocytes % 4.1 % (1.7-12.7); Neutrophils % 90.7 % (38.7-73.9); Platelet Count 174 T/CUMM (130-400); Red Cell Distribution Width 15.5 % (9.3-17.3); White Blood Count 18.1 T/CUMM (4-12)
[2021-01-13 06:13] LABS: Calcium 8.9 MG/DL (8.5-10.1); Osmolality,Calculated 286.7 MOS/KG (273-304); Potassium 3.2 MMOL/L (3.5-5.1)
[2021-01-13 06:35] LABS: Band Neutrophils 1 % (0-10); Lymphocytes 5 % (20-55); Segmented Neutrophils 92 % (50-85); Total Cells Counted 100
[2021-01-13 06:36] LABS: Platelet Estimate Adequate
[2021-01-13] MEDS: BUDESONIDE 0.5 MG/2 ML NEB RESP TX SCH ×2 (08:16→20:07)
[2021-01-13] MEDS: allopurinoL 100 MG TABLET PO SCH ×2 (08:57→20:33)
[2021-01-13] MEDS: DILTIAZEM CD 120 MG CAPSULE PO SCH ×2 (08:58→20:33)
[2021-01-13] MEDS: SOTALOL 80 MG TABLET PO SCH ×2 (08:58→20:33)
[2021-01-13] MEDS: PANTOPRAZOLE 40 MG TABLET PO SCH (08:58)
[2021-01-13] MEDS: MULTIVITAMIN (CENTRUM) TABLET PO SCH (08:58)
[2021-01-13] MEDS ORDERED: FUROSEMIDE 40 MG/4 ML VIAL IV SCH (09:00)
[2021-01-13] MEDS: POTASSIUM CHLORIDE 20 MEQ TABLET PO SCH (09:30)
[2021-01-13] MEDS: LATANOPROST 0.005% OPH SOLN 2.5 ML BOTTLE BOTH EYES SCH (20:33)
[2021-01-13] MEDS: METHOCARBAMOL 500 MG TABLET PO SCH (20:33)
[2021-01-14] MEDS: LEVALBUTEROL 0.31 MG/3 ML NEB RESP TX SCH ×6 (02:58→23:50)
[2021-01-14 05:08] LABS: Basophils % 0.1 % (0.0-0.8); Hematocrit 41.7 VOL% (42.0-52.0); Hemoglobin 13.7 GM/DL (14.0-18.0); Immature Granulocytes % 1.1 %; Immature Granulocytes Absolute 0.16 #; Lymphocytes # 0.3 10*3/uL (1.4-4.0); Lymphocytes % 2.3 % (21.2-54.2); Mean Corpuscular HGB Conc 32.9 GM/DL (32-36); Mean Corpuscular Volume 94.3 FL (87-102); Mean Platelet Volume 9.9 FL (9.6-12.0); Monocytes % 2.6 % (1.7-12.7); Neutrophils % 93.9 % (38.7-73.9); Platelet Count 157 T/CUMM (130-400); Red Blood Count 4.42 MC/CUMM (3.8-5.5); Red Cell Distribution Width 15.4 % (9.3-17.3); White Blood Count 14.1 T/CUMM (4-12)
[2021-01-14 05:23] LABS: Osmolality,Calculated 291.7 MOS/KG (273-304); Potassium 3.4 MMOL/L (3.5-5.1)
[2021-01-14 05:30] LABS: Hypochromasia 1+; Lymphocytes 1 % (20-55); Microcytosis 1+; Platelet Estimate Adequate; Segmented Neutrophils 94 % (50-85); Total Cells Counted 100
[2021-01-14] MEDS: methylPREDNISolone SOD SUC 40 MG/1 ML VIAL IV SCH (05:45)
[2021-01-14] MEDS: BUDESONIDE 0.5 MG/2 ML NEB RESP TX SCH ×2 (07:41→19:30)
[2021-01-14] MEDS: SOTALOL 80 MG TABLET PO SCH (08:51)
[2021-01-14] MEDS: DILTIAZEM CD 120 MG CAPSULE PO SCH (08:51)
[2021-01-14] MEDS: MULTIVITAMIN (CENTRUM) TABLET PO SCH (08:51)
[2021-01-14] MEDS: PANTOPRAZOLE 40 MG TABLET PO SCH (08:51)
[2021-01-14] MEDS: POTASSIUM CHLORIDE 20 MEQ TABLET PO SCH (08:51)
[2021-01-14] MEDS: allopurinoL 100 MG TABLET PO SCH ×2 (08:51→21:40)
[2021-01-14] MEDS ORDERED: POTASSIUM CHLORIDE 20 MEQ TABLET PO ONE (10:46)
[2021-01-14] MEDS: hydrALAZINE 25 MG TABLET PO SCH ×3 (11:41→21:40)
[2021-01-14] MEDS: DILTIAZEM CD 180 MG CAPSULE PO SCH (21:40)
[2021-01-14] MEDS: METHOCARBAMOL 500 MG TABLET PO SCH (21:41)
[2021-01-14] MEDS: LATANOPROST 0.005% OPH SOLN 2.5 ML BOTTLE BOTH EYES SCH (21:41)
[2021-01-15] MEDS: LEVALBUTEROL 0.31 MG/3 ML NEB RESP TX SCH ×3 (03:15→11:10)
[2021-01-15 04:54] LABS: Basophils # 0.1 10*3/uL (0.0-0.2); Basophils % 0.3 % (0.0-0.8); Hemoglobin 15.3 GM/DL (14.0-18.0); Immature Granulocytes % 1.6 %; Immature Granulocytes Absolute 0.26 #; Lymphocytes # 0.6 10*3/uL (1.4-4.0); Lymphocytes % 3.8 % (21.2-54.2); Mean Corpuscular HGB Conc 31.9 GM/DL (32-36); Mean Corpuscular Volume 97.2 FL (87-102); Mean Platelet Volume 10.2 FL (9.6-12.0); Monocytes % 8.5 % (1.7-12.7); Neutrophils % 85.8 % (38.7-73.9); Platelet Count 195 T/CUMM (130-400); Red Blood Count 4.94 MC/CUMM (3.8-5.5); Red Cell Distribution Width 15.6 % (9.3-17.3); White Blood Count 16.7 T/CUMM (4-12)
[2021-01-15 05:12] LABS: Calcium 9.4 MG/DL (8.5-10.1); Osmolality,Calculated 291.4 MOS/KG (273-304); Potassium 3.9 MMOL/L (3.5-5.1)
[2021-01-15 05:20] LABS: Lymphocytes 4 % (20-55); Platelet Estimate Adequate; Segmented Neutrophils 91 % (50-85); Total Cells Counted 100
[2021-01-15] MEDS: BUDESONIDE 0.5 MG/2 ML NEB RESP TX SCH ×2 (07:16→20:15)
[2021-01-15] MEDS ORDERED: SOTALOL 80 MG TABLET PO SCH (09:00)
[2021-01-15] MEDS ORDERED: predniSONE 20 MG TABLET PO SCH (09:00)
[2021-01-15] MEDS: PANTOPRAZOLE 40 MG TABLET PO SCH ×2 (09:52→20:51)
[2021-01-15] MEDS: DILTIAZEM CD 180 MG CAPSULE PO SCH ×2 (09:52→20:50)
[2021-01-15] MEDS: allopurinoL 100 MG TABLET PO SCH ×2 (09:52→20:51)
[2021-01-15] MEDS: MULTIVITAMIN (CENTRUM) TABLET PO SCH (09:52)
[2021-01-15] MEDS: POTASSIUM CHLORIDE 20 MEQ TABLET PO SCH (09:52)
[2021-01-15] MEDS: hydrALAZINE 25 MG TABLET PO SCH (10:03)
[2021-01-15] MEDS: LEVALBUTEROL 1.25 MG/3 ML NEB RESP TX SCH ×2 (15:50→20:15)
[2021-01-15] MEDS: MONTELUKAST 10 MG TABLET PO SCH ×2 (16:23→20:51)
[2021-01-15] MEDS: methylPREDNISolone SOD SUC 125 MG/2 ML VIAL IV SCH ×2 (16:23→20:53)
[2021-01-15] MEDS: IPRATROPIUM 500 MCG/2.5 ML NEB RESP TX SCH (20:15)
[2021-01-15] MEDS: ZALEPLON 5 MG CAPSULE PO PRN (20:51)
[2021-01-15] MEDS: METHOCARBAMOL 500 MG TABLET PO SCH (20:51)
[2021-01-15] MEDS: LATANOPROST 0.005% OPH SOLN 2.5 ML BOTTLE BOTH EYES SCH (20:54)
[2021-01-16] MEDS: LEVALBUTEROL 1.25 MG/3 ML NEB RESP TX SCH ×7 (00:39→20:01)
[2021-01-16] MEDS: IPRATROPIUM 500 MCG/2.5 ML NEB RESP TX SCH ×4 (00:45→20:21)
[2021-01-16 04:50] LABS: Basophils % 0.3 % (0.0-0.8); Eosinophils % 0.1 % (0.00-10.9); Hematocrit 46.4 VOL% (42.0-52.0); Hemoglobin 14.2 GM/DL (14.0-18.0); Immature Granulocytes % 1.7 %; Immature Granulocytes Absolute 0.23 #; Lymphocytes # 0.6 10*3/uL (1.4-4.0); Lymphocytes % 4.1 % (21.2-54.2); Mean Corpuscular HGB Conc 30.6 GM/DL (32-36); Mean Corpuscular Volume 98.9 FL (87-102); Mean Platelet Volume 10.7 FL (9.6-12.0); Monocytes % 6.5 % (1.7-12.7); Neutrophils % 87.3 % (38.7-73.9); Platelet Count 162 T/CUMM (130-400); Red Blood Count 4.69 MC/CUMM (3.8-5.5); Red Cell Distribution Width 15.3 % (9.3-17.3); White Blood Count 13.5 T/CUMM (4-12)
[2021-01-16 05:14] LABS: Calcium 9.1 MG/DL (8.5-10.1); Osmolality,Calculated 291.5 MOS/KG (273-304); Potassium 5.5 MMOL/L (3.5-5.1)
[2021-01-16 05:33] LABS: Eosinophils 1 % (0-10); Lymphocytes 11 % (20-55); Platelet Estimate Normal; Segmented Neutrophils 85 % (50-85); Total Cells Counted 100
[2021-01-16] MEDS: methylPREDNISolone SOD SUC 125 MG/2 ML VIAL IV SCH ×3 (06:18→22:03)
[2021-01-16] MEDS ORDERED: MEPERIDINE 50 MG/1 ML VIAL IM ONE (06:30)
[2021-01-16] MEDS ORDERED: PROMETHAZINE 25 MG/1 ML VIAL IM ONE (06:30)
[2021-01-16] MEDS ORDERED: LIDOCAINE 2% 20 ML VIAL RESP TX ONE (07:00)
[2021-01-16] MEDS ORDERED: MIDAZOLAM 2 MG/2 ML VIAL IV ONE (07:00)
[2021-01-16] MEDS ORDERED: LIDOCAINE 2% VISCOUS 100 ML BOTTLE SWISH/SPIT ONE (07:00)
[2021-01-16] MEDS ORDERED: LIDOCAINE 1% 20 ML VIAL MISC INJ ONE (07:00)
[2021-01-16] MEDS: BUDESONIDE 0.5 MG/2 ML NEB RESP TX SCH ×2 (07:45→20:01)
[2021-01-16] MEDS: DILTIAZEM CD 180 MG CAPSULE PO SCH ×2 (11:22→22:01)
[2021-01-16] MEDS: MONTELUKAST 10 MG TABLET PO SCH ×2 (11:25→22:02)
[2021-01-16] MEDS: MULTIVITAMIN (CENTRUM) TABLET PO SCH (11:25)
[2021-01-16] MEDS: allopurinoL 100 MG TABLET PO SCH ×2 (11:25→22:02)
[2021-01-16] MEDS: PANTOPRAZOLE 40 MG TABLET PO SCH ×2 (11:26→22:03)
[2021-01-16] MEDS: METHOCARBAMOL 500 MG TABLET PO SCH (22:02)
[2021-01-16] MEDS: LATANOPROST 0.005% OPH SOLN 2.5 ML BOTTLE BOTH EYES SCH (23:18)
[2021-01-17] MEDS: LEVALBUTEROL 1.25 MG/3 ML NEB RESP TX SCH ×3 (01:42→07:23)
[2021-01-17] MEDS: IPRATROPIUM 500 MCG/2.5 ML NEB RESP TX SCH ×2 (01:42→07:23)
[2021-01-17] MEDS: methylPREDNISolone SOD SUC 125 MG/2 ML VIAL IV SCH (06:16)
[2021-01-17] MEDS: BUDESONIDE 0.5 MG/2 ML NEB RESP TX SCH (07:23)
[2021-01-17] MEDS ORDERED: FUROSEMIDE 40 MG/4 ML VIAL IV ONE ×3 (09:10→12:22)
[2021-01-17] MEDS: MULTIVITAMIN (CENTRUM) TABLET PO SCH (09:36)
[2021-01-17] MEDS: allopurinoL 100 MG TABLET PO SCH (09:36)
[2021-01-17] MEDS: DILTIAZEM CD 180 MG CAPSULE PO SCH (09:36)
[2021-01-17] MEDS: PANTOPRAZOLE 40 MG TABLET PO SCH (09:36)
[2021-01-17] MEDS: MONTELUKAST 10 MG TABLET PO SCH (09:37)
[2021-01-17] MEDS: traMADol 50 MG TABLET PO PRN ×2 (09:48→12:50)
[2021-01-17 09:57] LABS: Calcium 9.3 MG/DL (8.5-10.1); Osmolality,Calculated 287.1 MOS/KG (273-304); Potassium 4.7 MMOL/L (3.5-5.1)
[2021-01-17 10:26] LABS: Basophils % 0.3 % (0.0-0.8); Hematocrit 54.4 VOL% (42.0-52.0); Immature Granulocytes % 6.1 %; Immature Granulocytes Absolute 0.82 #; Lymphocytes # 0.6 10*3/uL (1.4-4.0); Lymphocytes % 4.5 % (21.2-54.2); Mean Corpuscular HGB Conc 31.6 GM/DL (32-36); Mean Corpuscular Volume 97.7 FL (87-102); Mean Platelet Volume 10.7 FL (9.6-12.0); Monocytes % 1.8 % (1.7-12.7); NRBC # 0.02 10*3/uL; Neutrophils % 87.3 % (38.7-73.9); Platelet Count 177 T/CUMM (130-400); Red Blood Count 5.57 MC/CUMM (3.8-5.5); Red Cell Distribution Width 15.5 % (9.3-17.3); White Blood Count 13.5 T/CUMM (4-12)
[2021-01-17] MEDS ORDERED: LEVOFLOXACIN INJ 500 MG/100 ML PREMIX IV SCH (10:30)
[2021-01-17 10:34] LABS: Hemoglobin 17.2 GM/DL (14.0-18.0)
[2021-01-17 10:55] LABS: Band Neutrophils 8 % (0-10); Hypochromasia 1+; Lymphocytes 9 % (20-55); Segmented Neutrophils 78 % (50-85); Total Cells Counted 100
[2021-01-17 10:56] LABS: Microcytosis 1+; Platelet Estimate Adequate
[2021-01-17] MEDS ORDERED: DILTIAZEM 100 MG VIAL.ADD IV ONE (11:13)
[2021-01-17] MEDS ORDERED: DILTIAZEM 50 MG/10 ML VIAL IV ONE ×3 (11:13→12:18)
[2021-01-17] MEDS ORDERED: DILTIAZEM 25 MG/5 ML VIAL IV ONE (11:14)
[2021-01-17] MEDS: DILTIAZEM INJ 100 MG in SODIUM CHLORIDE 0.9% 100 ML IV SCH ×2 (11:33→18:08)
[2021-01-17] MEDS ORDERED: DIGOXIN 0.5 MG/2 ML AMP IV ONE (12:18)
[2021-01-17] MEDS: methylPREDNISolone SOD SUC 40 MG/1 ML VIAL IV SCH ×2 (13:17→23:51)
[2021-01-17 13:34] LABS: ABG Base Excess -2.2 MMOL/L (-2.5-2.5); ABG HCO3 22.6 MMOL/L (20-26); ABG Oxygen Saturation 99.5 % (95-100); ABG PCO2 39.2 MM HG (35-48); ABG PH 7.371 (7.35-7.45); ABG TCO2 18.8 MMOL/L (23-27); Allen Test Positive; Pt O2 Delivery Device BIPAP
[2021-01-17] MEDS: ALBUTEROL/IPRATROPIUM 3 ML NEB RESP TX SCH ×2 (14:20→19:38)
[2021-01-17] MEDS: VANCOMYCIN INJ 1,500 MG in SODIUM CHLORIDE 0.9% 500 ML IV SCH (15:50)
[2021-01-17] MEDS: PIPERACILLIN/TAZOBACTAM 3,375 MG in SODIUM CHLORIDE 0.9% 100 ML IV SCH (19:24)
[2021-01-17] MEDS: ACETAMINOPHEN 325 MG TABLET PO PRN (20:55)
[2021-01-17] MEDS ORDERED: BUDESONIDE/FORMOTEROL 160-4.5 INHALER 6 GM INH SCH (21:00)
[2021-01-17] MEDS: LATANOPROST 0.005% OPH SOLN 2.5 ML BOTTLE BOTH EYES SCH (22:10)
[2021-01-17] MEDS ORDERED: traMADol 50 MG TABLET PO ONE (23:40)
[2021-01-18] MEDS: ALBUTEROL/IPRATROPIUM 3 ML NEB RESP TX SCH ×4 (00:54→20:06)
[2021-01-18] MEDS: VANCOMYCIN INJ 1,500 MG in SODIUM CHLORIDE 0.9% 500 ML IV SCH (01:15)
[2021-01-18] MEDS: DILTIAZEM INJ 100 MG in SODIUM CHLORIDE 0.9% 100 ML IV SCH (01:56)
[2021-01-18] MEDS: PIPERACILLIN/TAZOBACTAM 3,375 MG in SODIUM CHLORIDE 0.9% 100 ML IV SCH ×2 (04:06→12:45)
[2021-01-18 06:26] LABS: Basophils # 0.1 10*3/uL (0.0-0.2); Basophils % 0.7 % (0.0-0.8); Hematocrit 48.3 VOL% (42.0-52.0); Hemoglobin 15.4 GM/DL (14.0-18.0); Immature Granulocytes % 1.9 %; Immature Granulocytes Absolute 0.17 #; Lymphocytes # 0.2 10*3/uL (1.4-4.0); Lymphocytes % 2.6 % (21.2-54.2); Mean Corpuscular HGB Conc 31.9 GM/DL (32-36); Mean Corpuscular Volume 97.4 FL (87-102); Neutrophils % 92.8 % (38.7-73.9); Platelet Count 92 T/CUMM (130-400); Red Blood Count 4.96 MC/CUMM (3.8-5.5); Red Cell Distribution Width 15.4 % (9.3-17.3); White Blood Count 9.1 T/CUMM (4-12)
[2021-01-18 07:11] LABS: Band Neutrophils 8 % (0-10); Hypochromasia 1+; Lymphocytes 6 % (20-55); Metamyelocytes 4 %; Microcytosis 1+; Myelocytes 1 %; Segmented Neutrophils 76 % (50-85); Total Cells Counted 100
[2021-01-18 08:35] LABS: Calcium 9.4 MG/DL (8.5-10.1); Osmolality,Calculated 291.7 MOS/KG (273-304); Potassium 4.9 MMOL/L (3.5-5.1)
[2021-01-18] MEDS: PANTOPRAZOLE 40 MG TABLET PO SCH (08:41)
[2021-01-18] MEDS: MONTELUKAST 10 MG TABLET PO SCH (08:41)
[2021-01-18] MEDS ORDERED: FUROSEMIDE 40 MG/4 ML VIAL IV SCH (09:00)
[2021-01-18] MEDS ORDERED: PANTOPRAZOLE 40 MG TABLET PO SCH (09:00)
[2021-01-18] MEDS ORDERED: PANTOPRAZOLE 40 MG VIAL IV SCH (09:00)
[2021-01-18] MEDS ORDERED: predniSONE 20 MG TABLET PO SCH (09:00)
[2021-01-18] MEDS ORDERED: ALBUTEROL/IPRATROPIUM 3 ML NEB RESP TX ONE (09:42)
[2021-01-18] MEDS ORDERED: SODIUM CHLORIDE 0.9% 1,000 ML IV SCH (10:00)
[2021-01-18] MEDS: DILTIAZEM CD 240 MG CAPSULE PO SCH (10:10)
[2021-01-18 12:36] LABS: ABG Base Excess -2.9 MMOL/L (-2.5-2.5); ABG PCO2 39.1 MM HG (35-48); ABG PH 7.362 (7.35-7.45); ABG PO2 89.7 MM HG (80-95); ABG TCO2 18.9 MMOL/L (23-27)
[2021-01-18] MEDS: methylPREDNISolone SOD SUC 40 MG/1 ML VIAL IV SCH (12:45)
[2021-01-18] MEDS: ceFAZolin 2,000 MG in PREMIX 1 EACH IV SCH ×2 (17:15→21:35)
[2021-01-18] MEDS: LATANOPROST 0.005% OPH SOLN 2.5 ML BOTTLE BOTH EYES SCH (21:21)
[2021-01-19] MEDS: methylPREDNISolone SOD SUC 40 MG/1 ML VIAL IV SCH ×3 (00:23→23:17)
[2021-01-19] MEDS: ALBUTEROL/IPRATROPIUM 3 ML NEB RESP TX SCH ×4 (00:38→19:58)
[2021-01-19 04:39] LABS: ABG Base Excess 0.3 MMOL/L (-2.5-2.5); ABG HCO3 24.7 MMOL/L (20-26); ABG PH 7.396 (7.35-7.45); ABG TCO2 21.6 MMOL/L (23-27); Allen Test Positive; Pt O2 Delivery Device BIPAP
[2021-01-19 05:36] LABS: Basophils % 0.1 % (0.0-0.8); Hematocrit 43.2 VOL% (42.0-52.0); Hemoglobin 14.2 GM/DL (14.0-18.0); Immature Granulocytes % 10.3 %; Immature Granulocytes Absolute 1.96 #; Lymphocytes # 0.1 10*3/uL (1.4-4.0); Lymphocytes % 0.7 % (21.2-54.2); Mean Corpuscular HGB Conc 32.9 GM/DL (32-36); Mean Corpuscular Volume 95.2 FL (87-102); Mean Platelet Volume 12.2 FL (9.6-12.0); Monocytes % 1.3 % (1.7-12.7); Neutrophils % 87.6 % (38.7-73.9); Platelet Count 68 T/CUMM (130-400); Red Blood Count 4.54 MC/CUMM (3.8-5.5); Red Cell Distribution Width 15.5 % (9.3-17.3); White Blood Count 19.1 T/CUMM (4-12)
[2021-01-19 05:46] LABS: Calcium 10.1 MG/DL (8.5-10.1); Osmolality,Calculated 296.7 MOS/KG (273-304); Potassium 4.6 MMOL/L (3.5-5.1)
[2021-01-19] MEDS: ceFAZolin 2,000 MG in PREMIX 1 EACH IV SCH (06:11)
[2021-01-19 07:25] LABS: Band Neutrophils 18 % (0-10); Lymphocytes 7 % (20-55); Metamyelocytes 12 %; Segmented Neutrophils 63 % (50-85); Total Cells Counted 100
[2021-01-19 07:26] LABS: Platelet Estimate Decreased
[2021-01-19] MEDS: DILTIAZEM CD 240 MG CAPSULE PO SCH (08:54)
[2021-01-19] MEDS: PANTOPRAZOLE 40 MG TABLET PO SCH (08:55)
[2021-01-19] MEDS: MONTELUKAST 10 MG TABLET PO SCH (08:55)
[2021-01-19] MEDS ORDERED: SODIUM CHLORIDE 0.9% 1,000 ML IV SCH (12:30)
[2021-01-19] MEDS: ACETYLCYSTEINE 20% 800 MG/4 ML VIAL RESP TX SCH (14:29)
[2021-01-19] MEDS: ONDANSETRON 4 MG/2 ML VIAL IV PRN (21:25)
[2021-01-19] MEDS: CLORAZEPATE 3.75 MG TABLET PO PRN (23:17)
[2021-01-19] MEDS: LATANOPROST 0.005% OPH SOLN 2.5 ML BOTTLE BOTH EYES SCH (23:17)
[2021-01-20] MEDS: ACETYLCYSTEINE 20% 800 MG/4 ML VIAL RESP TX SCH ×4 (00:15→23:44)
[2021-01-20] MEDS: ALBUTEROL/IPRATROPIUM 3 ML NEB RESP TX SCH ×5 (00:15→23:44)
[2021-01-20] MEDS: ONDANSETRON 4 MG/2 ML VIAL IV PRN (00:59)
[2021-01-20 02:00] LABS: Basophils # 0.2 10*3/uL (0.0-0.2); Basophils % 0.7 % (0.0-0.8); Hematocrit 42.7 VOL% (42.0-52.0); Hemoglobin 13.8 GM/DL (14.0-18.0); Immature Granulocytes % 0.9 %; Immature Granulocytes Absolute 0.24 #; Lymphocytes # 0.2 10*3/uL (1.4-4.0); Lymphocytes % 0.9 % (21.2-54.2); Mean Corpuscular HGB Conc 32.3 GM/DL (32-36); Mean Corpuscular Volume 94.5 FL (87-102); Monocytes % 2.6 % (1.7-12.7); NRBC # 0.03 10*3/uL; Neutrophils % 94.9 % (38.7-73.9); Platelet Count 80 T/CUMM (130-400); Red Blood Count 4.52 MC/CUMM (3.8-5.5); Red Cell Distribution Width 15.6 % (9.3-17.3); White Blood Count 26.9 T/CUMM (4-12)
[2021-01-20 02:10] LABS: Calcium 10.6 MG/DL (8.5-10.1); Osmolality,Calculated 297.8 MOS/KG (273-304); Potassium 4.4 MMOL/L (3.5-5.1)
[2021-01-20 02:55] LABS: Band Neutrophils 7 % (0-10); Lymphocytes 1 % (20-55); Segmented Neutrophils 89 % (50-85); Total Cells Counted 100
[2021-01-20 02:56] LABS: Platelet Estimate Decreased
[2021-01-20 03:00] LABS: Anisocytosis 1+; Microcytosis Slight; Polychromasia Slight
[2021-01-20] MEDS: CLINDAMYCIN INJ 600 MG/50 ML PREMIX IV SCH ×3 (08:42→23:10)
[2021-01-20] MEDS: LACTATED RINGERS 1,000 ML IV SCH ×3 (08:42→21:47)
[2021-01-20] MEDS: MONTELUKAST 10 MG TABLET PO SCH (08:43)
[2021-01-20] MEDS: PANTOPRAZOLE 40 MG TABLET PO SCH (08:44)
[2021-01-20] MEDS: DILTIAZEM CD 240 MG CAPSULE PO SCH (08:44)
[2021-01-20] MEDS: traMADol 50 MG TABLET PO PRN ×2 (08:44→15:39)
[2021-01-20] MEDS: LEVOFLOXACIN INJ 750 MG/150 ML PREMIX IV SCH (09:23)
[2021-01-20] MEDS: CLORAZEPATE 3.75 MG TABLET PO PRN (10:09)
[2021-01-20] MEDS: methylPREDNISolone SOD SUC 40 MG/1 ML VIAL IV SCH ×2 (11:21→23:10)
[2021-01-20] MEDS: hydrALAZINE 20 MG/1 ML VIAL IV PRN (11:54)
[2021-01-20] MEDS: LATANOPROST 0.005% OPH SOLN 2.5 ML BOTTLE BOTH EYES SCH (20:18)
[2021-01-21 04:27] LABS: Basophils # 0.1 10*3/uL (0.0-0.2); Basophils % 0.4 % (0.0-0.8); Eosinophils % 0.1 % (0.00-10.9); Hematocrit 40.2 VOL% (42.0-52.0); Hemoglobin 12.6 GM/DL (14.0-18.0); Immature Granulocytes % 1.9 %; Immature Granulocytes Absolute 0.41 #; Lymphocytes # 0.2 10*3/uL (1.4-4.0); Lymphocytes % 0.7 % (21.2-54.2); Mean Corpuscular HGB Conc 31.3 GM/DL (32-36); Mean Platelet Volume 12.7 FL (9.6-12.0); Monocytes % 4.2 % (1.7-12.7); NRBC # 0.02 10*3/uL; Neutrophils % 92.7 % (38.7-73.9); Platelet Count 61 T/CUMM (130-400); Red Cell Distribution Width 15.9 % (9.3-17.3); White Blood Count 21.7 T/CUMM (4-12)
[2021-01-21 04:50] LABS: Band Neutrophils 1 % (0-10); Lymphocytes 2 % (20-55); Microcytosis 1+; Platelet Estimate Decreased; Segmented Neutrophils 96 % (50-85); Total Cells Counted 100
[2021-01-21 05:00] LABS: Calcium 9.8 MG/DL (8.5-10.1); Osmolality,Calculated 308.4 MOS/KG (273-304); Potassium 4.7 MMOL/L (3.5-5.1)
[2021-01-21] MEDS: ALBUTEROL/IPRATROPIUM 3 ML NEB RESP TX SCH ×3 (07:52→18:11)
[2021-01-21] MEDS: MONTELUKAST 10 MG TABLET PO SCH (08:55)
[2021-01-21] MEDS: hydrALAZINE 20 MG/1 ML VIAL IV PRN ×2 (08:55→09:33)
[2021-01-21] MEDS: OMEPRAZOLE ODT 20 MG TABLET PO SCH (08:55)
[2021-01-21] MEDS: CLINDAMYCIN INJ 600 MG/50 ML PREMIX IV SCH ×3 (08:56→23:52)
[2021-01-21] MEDS: DILTIAZEM CD 240 MG CAPSULE PO SCH (08:56)
[2021-01-21] MEDS: hydrALAZINE 20 MG/1 ML VIAL IV SCH ×3 (10:33→21:13)
[2021-01-21] MEDS: ACETYLCYSTEINE 20% 800 MG/4 ML VIAL RESP TX SCH (10:56)
[2021-01-21] MEDS: methylPREDNISolone SOD SUC 40 MG/1 ML VIAL IV SCH ×2 (11:27→23:52)
[2021-01-21] MEDS: LACTATED RINGERS 1,000 ML IV SCH (11:30)
[2021-01-21] MEDS: LATANOPROST 0.005% OPH SOLN 2.5 ML BOTTLE BOTH EYES SCH (20:42)
[2021-01-21] MEDS: traMADol 50 MG TABLET PO PRN (23:51)
[2021-01-21] MEDS: CLORAZEPATE 3.75 MG TABLET PO PRN (23:51)
[2021-01-22] MEDS: LACTATED RINGERS 1,000 ML IV SCH ×3 (00:24→17:52)
[2021-01-22] MEDS: ALBUTEROL/IPRATROPIUM 3 ML NEB RESP TX SCH ×4 (01:15→18:22)
[2021-01-22] MEDS: hydrALAZINE 20 MG/1 ML VIAL IV SCH (04:25)
[2021-01-22 05:18] LABS: Basophils # 0.1 10*3/uL (0.0-0.2); Basophils % 0.7 % (0.0-0.8); Eosinophils % 0.2 % (0.00-10.9); Hematocrit 38.5 VOL% (42.0-52.0); Hemoglobin 12.3 GM/DL (14.0-18.0); Immature Granulocytes Absolute 0.82 #; Lymphocytes # 0.2 10*3/uL (1.4-4.0); Lymphocytes % 1.1 % (21.2-54.2); Mean Corpuscular HGB Conc 31.9 GM/DL (32-36); Mean Platelet Volume 12.6 FL (9.6-12.0); Monocytes % 2.9 % (1.7-12.7); Neutrophils % 90.1 % (38.7-73.9); Platelet Count 51 T/CUMM (130-400); Red Blood Count 4.01 MC/CUMM (3.8-5.5); Red Cell Distribution Width 15.9 % (9.3-17.3); White Blood Count 16.5 T/CUMM (4-12)
[2021-01-22 05:53] LABS: Band Neutrophils 1 % (0-10); Lymphocytes 2 % (20-55); Myelocytes 3 %; Segmented Neutrophils 87 % (50-85); Total Cells Counted 100
[2021-01-22 05:54] LABS: Hypochromasia Slight; Microcytosis 1+; Platelet Estimate Decreased
[2021-01-22 06:43] LABS: Calcium 9.5 MG/DL (8.5-10.1); Osmolality,Calculated 308.4 MOS/KG (273-304); Potassium 4.8 MMOL/L (3.5-5.1)
[2021-01-22] MEDS: OMEPRAZOLE ODT 20 MG TABLET PO SCH (08:25)
[2021-01-22] MEDS: DILTIAZEM CD 300 MG CAPSULE PO SCH (08:25)
[2021-01-22] MEDS: MONTELUKAST 10 MG TABLET PO SCH (08:25)
[2021-01-22] MEDS: CLINDAMYCIN INJ 600 MG/50 ML PREMIX IV SCH ×3 (08:26→23:42)
[2021-01-22] MEDS: LEVOFLOXACIN INJ 750 MG/150 ML PREMIX IV SCH (09:05)
[2021-01-22] MEDS ORDERED: METOPROLOL TARTRATE 5 MG/5 ML VIAL IV ONE (10:36)
[2021-01-22] MEDS: methylPREDNISolone SOD SUC 40 MG/1 ML VIAL IV SCH ×2 (11:41→23:41)
[2021-01-22] MEDS: ZINC OXIDE PASTE 113 GM TUBE TOP SCH ×2 (14:39→20:26)
[2021-01-22] MEDS: hydrALAZINE 25 MG TABLET PO SCH ×3 (15:11→20:27)
[2021-01-22] MEDS: CLORAZEPATE 3.75 MG TABLET PO PRN (20:26)
[2021-01-22] MEDS: traMADol 50 MG TABLET PO PRN (20:27)
[2021-01-22] MEDS: FAMOTIDINE 20 MG TABLET PO SCH (20:27)
[2021-01-22] MEDS: LATANOPROST 0.005% OPH SOLN 2.5 ML BOTTLE BOTH EYES SCH (21:26)
[2021-01-23] MEDS: ALBUTEROL/IPRATROPIUM 3 ML NEB RESP TX SCH ×4 (01:25→19:37)
[2021-01-23] MEDS: LACTATED RINGERS 1,000 ML IV SCH ×4 (03:03→21:07)
[2021-01-23] MEDS: traMADol 50 MG TABLET PO PRN ×2 (05:41→12:06)
[2021-01-23 06:02] LABS: Basophils # 0.1 10*3/uL (0.0-0.2); Basophils % 0.5 % (0.0-0.8); Hematocrit 37.5 VOL% (42.0-52.0); Immature Granulocytes % 4.9 %; Immature Granulocytes Absolute 0.61 #; Lymphocytes # 0.1 10*3/uL (1.4-4.0); Lymphocytes % 1.1 % (21.2-54.2); Mean Corpuscular Volume 95.9 FL (87-102); Mean Platelet Volume 12.6 FL (9.6-12.0); Monocytes % 2.5 % (1.7-12.7); NRBC # 0.03 10*3/uL; Platelet Count 63 T/CUMM (130-400); Red Blood Count 3.91 MC/CUMM (3.8-5.5); Red Cell Distribution Width 15.9 % (9.3-17.3); White Blood Count 12.3 T/CUMM (4-12)
[2021-01-23 06:16] LABS: Calcium 9.1 MG/DL (8.5-10.1); Osmolality,Calculated 307.7 MOS/KG (273-304); Potassium 4.6 MMOL/L (3.5-5.1)
[2021-01-23 06:17] LABS: Band Neutrophils 1 % (0-10); Hypochromasia 1+; Lymphocytes 4 % (20-55); Microcytosis 1+; Platelet Estimate Decreased; Segmented Neutrophils 91 % (50-85); Total Cells Counted 100
[2021-01-23] MEDS: CLINDAMYCIN INJ 600 MG/50 ML PREMIX IV SCH ×2 (07:42→15:31)
[2021-01-23] MEDS: FAMOTIDINE 20 MG TABLET PO SCH ×2 (08:14→20:59)
[2021-01-23] MEDS: hydrALAZINE 25 MG TABLET PO SCH ×3 (08:14→20:59)
[2021-01-23] MEDS: MONTELUKAST 10 MG TABLET PO SCH (08:14)
[2021-01-23] MEDS: CLORAZEPATE 3.75 MG TABLET PO PRN ×2 (08:14→21:05)
[2021-01-23] MEDS: DILTIAZEM CD 300 MG CAPSULE PO SCH (08:14)
[2021-01-23] MEDS: ZINC OXIDE PASTE 113 GM TUBE TOP SCH ×2 (10:47→20:59)
[2021-01-23] MEDS: methylPREDNISolone SOD SUC 40 MG/1 ML VIAL IV SCH (12:05)
[2021-01-23] MEDS: LATANOPROST 0.005% OPH SOLN 2.5 ML BOTTLE BOTH EYES SCH (21:01)
[2021-01-24] MEDS: CLINDAMYCIN INJ 600 MG/50 ML PREMIX IV SCH ×3 (00:12→15:02)
[2021-01-24] MEDS: methylPREDNISolone SOD SUC 40 MG/1 ML VIAL IV SCH ×2 (00:12→12:54)
[2021-01-24] MEDS: LACTATED RINGERS 1,000 ML IV SCH ×4 (04:06→23:07)
[2021-01-24 06:03] LABS: Basophils % 0.3 % (0.0-0.8); Hematocrit 38.3 VOL% (42.0-52.0); Hemoglobin 12.4 GM/DL (14.0-18.0); Immature Granulocytes % 4.5 %; Immature Granulocytes Absolute 0.57 #; Lymphocytes # 0.1 10*3/uL (1.4-4.0); Lymphocytes % 1.1 % (21.2-54.2); Mean Corpuscular HGB Conc 32.4 GM/DL (32-36); Mean Platelet Volume 12.6 FL (9.6-12.0); Monocytes % 2.2 % (1.7-12.7); Neutrophils % 91.9 % (38.7-73.9); Platelet Count 66 T/CUMM (130-400); Red Blood Count 3.99 MC/CUMM (3.8-5.5); Red Cell Distribution Width 15.8 % (9.3-17.3); White Blood Count 12.7 T/CUMM (4-12)
[2021-01-24 06:25] LABS: Calcium 9.4 MG/DL (8.5-10.1); Osmolality,Calculated 310.4 MOS/KG (273-304); Potassium 4.8 MMOL/L (3.5-5.1)
[2021-01-24 06:28] LABS: Lymphocytes 2 % (20-55); Segmented Neutrophils 97 % (50-85); Total Cells Counted 100
[2021-01-24 06:29] LABS: Hypochromasia 1+; Microcytosis 1+; Platelet Estimate Decreased
[2021-01-24] MEDS: ALBUTEROL/IPRATROPIUM 3 ML NEB RESP TX SCH ×4 (07:25→19:31)
[2021-01-24] MEDS: ZINC OXIDE PASTE 113 GM TUBE TOP SCH ×2 (09:30→20:43)
[2021-01-24] MEDS: LEVOFLOXACIN INJ 750 MG/150 ML PREMIX IV SCH (10:34)
[2021-01-24] MEDS ORDERED: propofoL 200 MG/20 ML VIAL IV ONE (11:30)
[2021-01-24] MEDS ORDERED: LIDOCAINE 2% 5 ML VIAL ONE (11:30)
[2021-01-24] MEDS ORDERED: ETOMIDATE 20 MG/10 ML VIAL IV ONE (11:30)
[2021-01-24] MEDS: DILTIAZEM CD 300 MG CAPSULE PO SCH (12:53)
[2021-01-24] MEDS: hydrALAZINE 25 MG TABLET PO SCH (12:53)
[2021-01-24] MEDS: MONTELUKAST 10 MG TABLET PO SCH (12:53)
[2021-01-24] MEDS: FAMOTIDINE 20 MG TABLET PO SCH ×2 (12:53→20:43)
[2021-01-24] MEDS: CLOTRIMAZOLE 10 MG TROCHE PO SCH ×3 (15:01→23:05)
[2021-01-24] MEDS ORDERED: DILTIAZEM 50 MG/10 ML VIAL IV ONE (15:35)
[2021-01-24] MEDS: CLORAZEPATE 3.75 MG TABLET PO PRN (16:24)
[2021-01-24 17:06] LABS: Free T4 (Free Thyroxine) 0.88 NG/DL (0.76-1.46); Thyroid Stimulating Hormone 0.127 uIU/ml (0.358-3.74)
[2021-01-24] MEDS: DILTIAZEM INJ 100 MG in SODIUM CHLORIDE 0.9% 100 ML IV SCH (17:38)
[2021-01-24] MEDS: traMADol 50 MG TABLET PO PRN (20:41)
[2021-01-24] MEDS: LATANOPROST 0.005% OPH SOLN 2.5 ML BOTTLE BOTH EYES SCH (20:43)
[2021-01-25] MEDS: CLINDAMYCIN INJ 600 MG/50 ML PREMIX IV SCH ×4 (00:14→23:11)
[2021-01-25] MEDS: methylPREDNISolone SOD SUC 40 MG/1 ML VIAL IV SCH ×3 (00:14→23:08)
[2021-01-25] MEDS: ALBUTEROL/IPRATROPIUM 3 ML NEB RESP TX SCH ×3 (00:40→19:38)
[2021-01-25 05:41] LABS: Basophils % 0.2 % (0.0-0.8); Hematocrit 38.8 VOL% (42.0-52.0); Hemoglobin 12.2 GM/DL (14.0-18.0); Immature Granulocytes % 3.5 %; Lymphocytes # 0.1 10*3/uL (1.4-4.0); Lymphocytes % 0.6 % (21.2-54.2); Mean Corpuscular HGB Conc 31.4 GM/DL (32-36); Mean Corpuscular Volume 96.3 FL (87-102); Mean Platelet Volume 12.1 FL (9.6-12.0); Monocytes % 1.7 % (1.7-12.7); Platelet Count 87 T/CUMM (130-400); Red Blood Count 4.03 MC/CUMM (3.8-5.5); Red Cell Distribution Width 15.9 % (9.3-17.3); White Blood Count 14.2 T/CUMM (4-12)
[2021-01-25] MEDS: CLOTRIMAZOLE 10 MG TROCHE PO SCH ×5 (05:49→21:15)
[2021-01-25] MEDS: DILTIAZEM INJ 100 MG in SODIUM CHLORIDE 0.9% 100 ML IV SCH (05:49)
[2021-01-25 06:05] LABS: Lymphocytes 3 % (20-55); Platelet Estimate Decreased; Segmented Neutrophils 95 % (50-85); Total Cells Counted 100
[2021-01-25 07:46] LABS: Albumin 2.3 G/DL (3.4-5.0); Bilirubin,Total 0.5 MG/DL (0.2-1.0); Calcium 9.5 MG/DL (8.5-10.1); Osmolality,Calculated 309.5 MOS/KG (273-304); Total Protein 5.9 G/DL (6.4-8.2)
[2021-01-25] MEDS: MONTELUKAST 10 MG TABLET PO SCH (08:55)
[2021-01-25] MEDS: DILTIAZEM CD 300 MG CAPSULE PO SCH (08:55)
[2021-01-25] MEDS: ZINC OXIDE PASTE 113 GM TUBE TOP SCH ×2 (08:55→20:33)
[2021-01-25] MEDS: FAMOTIDINE 20 MG TABLET PO SCH ×2 (08:56→20:33)
[2021-01-25] MEDS: LACTATED RINGERS 1,000 ML IV SCH ×2 (09:04→16:31)
[2021-01-25] MEDS: NEBIVOLOL 10 MG TABLET PO SCH (09:39)
[2021-01-25] MEDS: CLORAZEPATE 3.75 MG TABLET PO PRN ×2 (14:04→22:05)
[2021-01-25] MEDS: traMADol 50 MG TABLET PO PRN ×2 (14:20→20:32)
[2021-01-25] MEDS ORDERED: FLUCONAZOLE 100 MG TABLET PO SCH (16:30)
[2021-01-25] MEDS: LATANOPROST 0.005% OPH SOLN 2.5 ML BOTTLE BOTH EYES SCH (20:34)
[2021-01-26] MEDS: ALBUTEROL/IPRATROPIUM 3 ML NEB RESP TX SCH ×4 (00:54→18:45)
[2021-01-26 05:42] LABS: Basophils % 0.3 % (0.0-0.8); Hematocrit 37.9 VOL% (42.0-52.0); Immature Granulocytes % 2.1 %; Lymphocytes # 0.2 10*3/uL (1.4-4.0); Lymphocytes % 1.2 % (21.2-54.2); Mean Corpuscular HGB Conc 31.7 GM/DL (32-36); Mean Corpuscular Volume 95.7 FL (87-102); Mean Platelet Volume 12.3 FL (9.6-12.0); Monocytes % 0.8 % (1.7-12.7); Neutrophils % 95.6 % (38.7-73.9); Platelet Count 109 T/CUMM (130-400); Red Blood Count 3.96 MC/CUMM (3.8-5.5); Red Cell Distribution Width 15.9 % (9.3-17.3); White Blood Count 14.5 T/CUMM (4-12)
[2021-01-26] MEDS: CLOTRIMAZOLE 10 MG TROCHE PO SCH ×5 (05:45→21:05)
[2021-01-26 06:00] LABS: Calcium 9.2 MG/DL (8.5-10.1); Osmolality,Calculated 312.5 MOS/KG (273-304); Potassium 5.5 MMOL/L (3.5-5.1)
[2021-01-26 07:12] LABS: Lymphocytes 1 % (20-55); Platelet Estimate Adequate; Segmented Neutrophils 99 % (50-85); Total Cells Counted 100
[2021-01-26] MEDS: CLORAZEPATE 3.75 MG TABLET PO PRN ×3 (07:23→23:29)
[2021-01-26] MEDS: MONTELUKAST 10 MG TABLET PO SCH (08:31)
[2021-01-26] MEDS: NEBIVOLOL 10 MG TABLET PO SCH (08:31)
[2021-01-26] MEDS: DILTIAZEM CD 300 MG CAPSULE PO SCH (08:31)
[2021-01-26] MEDS: ZINC OXIDE PASTE 113 GM TUBE TOP SCH ×2 (08:31→21:02)
[2021-01-26] MEDS: FAMOTIDINE 20 MG TABLET PO SCH ×2 (08:31→21:02)
[2021-01-26] MEDS: CLINDAMYCIN INJ 600 MG/50 ML PREMIX IV SCH ×3 (08:32→23:35)
[2021-01-26] MEDS: LEVOFLOXACIN INJ 750 MG/150 ML PREMIX IV SCH (09:08)
[2021-01-26] MEDS: methylPREDNISolone SOD SUC 40 MG/1 ML VIAL IV SCH ×2 (12:17→23:29)
[2021-01-26] MEDS ORDERED: FLUCONAZOLE 100 MG TABLET PO ONE (15:45)
[2021-01-26] MEDS: ACETAMINOPHEN 325 MG TABLET PO PRN (18:07)
[2021-01-26] MEDS: LATANOPROST 0.005% OPH SOLN 2.5 ML BOTTLE BOTH EYES SCH (21:03)
[2021-01-27] MEDS: traMADol 50 MG TABLET PO PRN ×3 (00:08→20:34)
[2021-01-27] MEDS: ALBUTEROL/IPRATROPIUM 3 ML NEB RESP TX SCH ×4 (01:25→19:05)
[2021-01-27] MEDS: CLOTRIMAZOLE 10 MG TROCHE PO SCH ×5 (05:15→23:26)
[2021-01-27 06:29] LABS: Basophils % 0.2 % (0.0-0.8); Hematocrit 37.8 VOL% (42.0-52.0); Immature Granulocytes % 1.5 %; Lymphocytes # 0.1 10*3/uL (1.4-4.0); Lymphocytes % 0.8 % (21.2-54.2); Mean Corpuscular HGB Conc 31.7 GM/DL (32-36); Mean Corpuscular Volume 96.7 FL (87-102); Mean Platelet Volume 12.1 FL (9.6-12.0); Neutrophils % 96.5 % (38.7-73.9); Platelet Count 119 T/CUMM (130-400); Red Blood Count 3.91 MC/CUMM (3.8-5.5); Red Cell Distribution Width 15.9 % (9.3-17.3)
[2021-01-27 06:47] LABS: Calcium 8.8 MG/DL (8.5-10.1); Osmolality,Calculated 315.7 MOS/KG (273-304)
[2021-01-27 06:59] LABS: Potassium 6.2 MMOL/L (3.5-5.1)
[2021-01-27 07:02] LABS: Lymphocytes 1 % (20-55); Platelet Estimate Normal; Segmented Neutrophils 97 % (50-85); Total Cells Counted 100
[2021-01-27 07:05] LABS: Albumin 2.3 G/DL (3.4-5.0); Bilirubin,Total 0.6 MG/DL (0.2-1.0); Osmolality,Calculated 313.8 MOS/KG (273-304); Total Protein 5.8 G/DL (6.4-8.2)
[2021-01-27 07:36] LABS: Potassium 6.1 MMOL/L (3.5-5.1)
[2021-01-27] MEDS: CLORAZEPATE 3.75 MG TABLET PO PRN ×2 (07:37→23:31)
[2021-01-27] MEDS ORDERED: SODIUM POLYSTYRENE SULFATE 15 GM/60 ML BOTTLE PO STA ×3 (07:45→13:07)
[2021-01-27] MEDS: FAMOTIDINE 20 MG TABLET PO SCH ×2 (08:03→20:34)
[2021-01-27] MEDS: CLINDAMYCIN INJ 600 MG/50 ML PREMIX IV SCH ×2 (08:03→17:02)
[2021-01-27] MEDS: NEBIVOLOL 10 MG TABLET PO SCH (08:03)
[2021-01-27] MEDS: DILTIAZEM CD 300 MG CAPSULE PO SCH (08:03)
[2021-01-27] MEDS: MONTELUKAST 10 MG TABLET PO SCH (08:03)
[2021-01-27] MEDS: ZINC OXIDE PASTE 113 GM TUBE TOP SCH ×2 (08:03→20:34)
[2021-01-27] MEDS: methylPREDNISolone SOD SUC 40 MG/1 ML VIAL IV SCH ×2 (10:32→23:26)
[2021-01-27] MEDS ORDERED: GLUCAGON 1 MG VIAL IM PRN (11:20)
[2021-01-27] MEDS ORDERED: DEXTROSE 50% 25 GM/50 ML VIAL IV PRN (11:20)
[2021-01-27] MEDS: allopurinoL 100 MG TABLET PO SCH ×2 (13:20→20:34)
[2021-01-27] MEDS: INSULIN REGULAR 100 UNIT/ML SUBCUT SCH (16:43)
[2021-01-27] MEDS: LATANOPROST 0.005% OPH SOLN 2.5 ML BOTTLE BOTH EYES SCH (21:18)
[2021-01-28] MEDS: ALBUTEROL/IPRATROPIUM 3 ML NEB RESP TX SCH ×5 (01:29→19:22)
[2021-01-28 05:14] LABS: Basophils % 0.2 % (0.0-0.8); Hematocrit 37.7 VOL% (42.0-52.0); Hemoglobin 12.3 GM/DL (14.0-18.0); Immature Granulocytes % 1.3 %; Immature Granulocytes Absolute 0.17 #; Lymphocytes # 0.1 10*3/uL (1.4-4.0); Mean Corpuscular HGB Conc 32.6 GM/DL (32-36); Mean Corpuscular Volume 94.3 FL (87-102); Mean Platelet Volume 11.6 FL (9.6-12.0); Monocytes % 1.6 % (1.7-12.7); Neutrophils % 95.9 % (38.7-73.9); Platelet Count 133 T/CUMM (130-400); Red Cell Distribution Width 15.8 % (9.3-17.3); White Blood Count 12.9 T/CUMM (4-12)
[2021-01-28 05:28] LABS: Calcium 8.8 MG/DL (8.5-10.1)
[2021-01-28] MEDS: CLOTRIMAZOLE 10 MG TROCHE PO SCH ×5 (05:28→21:48)
[2021-01-28 05:31] LABS: Potassium 6.1 MMOL/L (3.5-5.1)
[2021-01-28] MEDS ORDERED: SODIUM POLYSTYRENE SULFATE 15 GM/60 ML BOTTLE PO ONE (05:39)
[2021-01-28 05:55] LABS: Hypochromasia Slight; Lymphocytes 1 % (20-55); Microcytosis 1+; Platelet Estimate Adequate; Segmented Neutrophils 97 % (50-85); Total Cells Counted 100
[2021-01-28] MEDS: traMADol 50 MG TABLET PO PRN ×2 (06:15→12:32)
[2021-01-28] MEDS ORDERED: INSULIN REGULAR 10 UNIT, CALCIUM GLUCONATE 1,000 MG in DEXTROSE 10% 250 ML IV ONE (06:30)
[2021-01-28] MEDS ORDERED: LIDOCAINE 1%/EPI INJ 20 ML VIAL ONE (07:03)
[2021-01-28] MEDS ORDERED: HEPARIN/NACL 0.9% 2 UNITS/ML 0 UNIT/0 ML BAG IV ONE (07:03)
[2021-01-28] MEDS ORDERED: diphenhydrAMINE CAP 25 MG CAPSULE PO ONE (08:00)
[2021-01-28] MEDS ORDERED: DIAZEPAM 5 MG TABLET PO ONE (08:00)
[2021-01-28] MEDS ORDERED: POTASSIUM CHLORIDE RIDER 10 MEQ in PREMIX 1 EACH IV PRN (08:58)
[2021-01-28] MEDS ORDERED: MAGNESIUM SULF RIDER 2 GM/50 ML PREMIX IV PRN (08:58)
[2021-01-28] MEDS: NEBIVOLOL 10 MG TABLET PO SCH (08:59)
[2021-01-28] MEDS: FAMOTIDINE 20 MG TABLET PO SCH ×2 (09:00→21:48)
[2021-01-28] MEDS: MONTELUKAST 10 MG TABLET PO SCH (09:00)
[2021-01-28] MEDS: DILTIAZEM CD 300 MG CAPSULE PO SCH (09:00)
[2021-01-28] MEDS: allopurinoL 100 MG TABLET PO SCH ×2 (09:00→21:48)
[2021-01-28] MEDS: ZINC OXIDE PASTE 113 GM TUBE TOP SCH ×2 (09:01→21:49)
[2021-01-28] MEDS: INSULIN REGULAR 100 UNIT/ML SUBCUT SCH ×2 (10:25→16:37)
[2021-01-28] MEDS: methylPREDNISolone SOD SUC 40 MG/1 ML VIAL IV SCH (11:38)
[2021-01-28] MEDS: SODIUM ZIRCONIUM CYCLOSILICATE 10 GM PACK PO SCH ×2 (15:13→21:49)
[2021-01-28] MEDS: CLORAZEPATE 3.75 MG TABLET PO PRN (21:48)
[2021-01-28] MEDS: LATANOPROST 0.005% OPH SOLN 2.5 ML BOTTLE BOTH EYES SCH (21:49)
[2021-01-29] MEDS: ALBUTEROL/IPRATROPIUM 3 ML NEB RESP TX SCH ×3 (00:05→13:15)
[2021-01-29] MEDS: traMADol 50 MG TABLET PO PRN ×2 (01:45→08:56)
[2021-01-29 05:17] LABS: Basophils % 0.1 % (0.0-0.8); Eosinophils % 0.2 % (0.00-10.9); Hematocrit 39.8 VOL% (42.0-52.0); Hemoglobin 12.5 GM/DL (14.0-18.0); Immature Granulocytes Absolute 0.15 #; Lymphocytes # 0.2 10*3/uL (1.4-4.0); Lymphocytes % 1.6 % (21.2-54.2); Mean Corpuscular HGB Conc 31.4 GM/DL (32-36); Mean Corpuscular Volume 97.1 FL (87-102); Mean Platelet Volume 11.5 FL (9.6-12.0); Monocytes % 2.8 % (1.7-12.7); Neutrophils % 94.3 % (38.7-73.9); Platelet Count 141 T/CUMM (130-400); Red Cell Distribution Width 15.9 % (9.3-17.3); White Blood Count 14.8 T/CUMM (4-12)
[2021-01-29 05:35] LABS: Osmolality,Calculated 308.5 MOS/KG (273-304); Potassium 4.9 MMOL/L (3.5-5.1)
[2021-01-29 05:48] LABS: Eosinophils 1 % (0-10); Hypochromasia Slight; Lymphocytes 2 % (20-55); Microcytosis Slight; Platelet Estimate Adequate; Segmented Neutrophils 96 % (50-85); Total Cells Counted 100
[2021-01-29] MEDS: CLOTRIMAZOLE 10 MG TROCHE PO SCH ×2 (05:55→12:18)
[2021-01-29] MEDS: NEBIVOLOL 10 MG TABLET PO SCH (08:05)
[2021-01-29] MEDS: DILTIAZEM CD 300 MG CAPSULE PO SCH (08:05)
[2021-01-29] MEDS: FAMOTIDINE 20 MG TABLET PO SCH (08:05)
[2021-01-29] MEDS ORDERED: predniSONE 20 MG TABLET PO SCH (09:00)
[2021-01-29] MEDS: INSULIN REGULAR 100 UNIT/ML SUBCUT SCH (09:33)
[2021-01-29] MEDS ORDERED: diphenhydrAMINE CAP 25 MG CAPSULE PO ONE (10:30)
[2021-01-29] MEDS ORDERED: DIAZEPAM 5 MG TABLET PO ONE (10:30)
[2021-01-29 11:57] VITALS: BP 137/62
[2021-01-29] MEDS: allopurinoL 100 MG TABLET PO SCH (12:17)
[2021-01-29] MEDS: MONTELUKAST 10 MG TABLET PO SCH (12:18)
[2021-01-29] MEDS: SODIUM ZIRCONIUM CYCLOSILICATE 10 GM PACK PO SCH ×2 (12:18→17:08)
[2021-01-29] MEDS: ZINC OXIDE PASTE 113 GM TUBE TOP SCH (12:18)
== END 2021-01-29 16:41 | DRG 190 ==
LOC: N.ED 10:22 → N.EDINP 10:22 → SUATTDRO 13:01 → N.TELEN 15:55 → SUATTDRO 01-14 11:15 → N.CC 01-17 11:38 → N.TELEN 01-19 14:58 → N.CC 01-20 02:06 → N.TELES 01-23 17:15
PROVIDERS: ADMIT Internal Medicine; ATTEND Internal Medicine